=== PATIENT | male | born 1945 | race Caucasian/White ===

== ENCOUNTER 2017-01-11 11:22 | Inpatient (IN) | payer MEDICARE ==
[~2017-01-11] VITALS: Ht 180.3 cm; Wt 83.2 kg
[2017-01-11] VITALS (8 sets, daily range): BP systolic 151–207; BP diastolic 69–110; PULSE 64–82; RESP 14–22; TEMP 96.7–98.2; O2SAT 94–100
[~2017-01-11 11:22] MED LIST: ASPI81TA82 PO; ATEN-102 PO; LISI10TA PO; OMEP20TA39 PO; PARO20TA PO; VIAG100T PO; Z.0.COMMODE-3:1; Z.0.WALKERFRONT; ZOCO40TA PO
[2017-01-11] MEDS ORDERED: VIAG50TA PO (11:42)
[2017-01-11] MEDS ORDERED: OMEP20TA PO (11:42)
[2017-01-11] MEDS ORDERED: PARO10TA2 PO (11:42)
[2017-01-11] MEDS ORDERED: LISI20TA PO (11:42)
[2017-01-11] MEDS ORDERED: SIMV20TA PO (11:42)
[2017-01-11] MEDS ORDERED: ATEN25TA PO (11:42)
[2017-01-11] MEDS ORDERED: SODIUM CHLOR 0.9% 1000 ML INJ 1,000 ML IV SCH (11:51)
--- NOTE | 2017-01-11 11:57 | PD ---
HPI Chief Complaint: GI Complaint Time Seen by Provider: 11:43 Travel History International Travel<30 days: No Contact w/Intl Traveler<30days: No Traveled to known affect area: No History of Present Illness HPI 71yo M was sent from [facility] to the ED for evaluation of lower abdominal pain and nonbloody diarrhea since last night. States it is more cramping and intermittent. Denies any fever, chest pain, sob, n/v, dysuria, hematuria, testicular pain, focal weakness or numbness. Pt states he has had constipation before the diarrhea. Denies any abdominal surgery. PFSH Past Medical History Depression: Yes Cancer: No Cardiovascular Problems: No High Cholesterol: Yes Diabetes: No Diminished Hearing: No Endocrine: No Gastrointestinal Disorders: Yes (OCCAS HEARTBURN) GERD: Yes Genitourinary: No Hepatitis: No Hiatal Hernia: Yes (LARGE) Hypertension: Yes Immune Disorder: No Medical other: Yes Musculoskeletal: No Neurologic: Yes (NUMBNESS AND TINGLING IN FEET OCCAS.) Psychiatric: Yes (ANXIETY; PTSD) Reproductive: No Respiratory: No Immunizations Current: Yes Thyroid Disease: No Tetanus Vaccination: > 5 Years Influenza Vaccination: Yes Past Surgical History AICD: No Body Medical Devices: NONE Joint Replacement: Yes (LEFT KNEE) Pacemaker: No Other Surgery: No Social History Alcohol Use: Yes (3-4 GLASSES WINE DAILY) Tobacco Use: No (QUIT 40 YRS AGO) Substance Use: No Allergies-Medications (Allergen,Severity, Reaction): Coded Allergies: No Known Allergies (Unverified , 01/11/17) Reported Meds & Prescriptions Reported Meds & Active Scripts Active Reported Viagra (Sildenafil Citrate) 50 Mg Tab 50 Mg PO DAILY PRN Simvastatin 20 Mg Tab 20 Mg PO DAILY Omeprazole 20 Mg Tab 20 Mg PO BID Paroxetine (Paroxetine HCl) 10 Mg Tab 10 Mg PO DAILY Lisinopril-Hctz 20-12.5 Mg Tab 1 Tab PO DAILY Atenolol 25 Mg Tab 25 Mg PO DAILY Review of Systems Except as stated in HPI: all other systems reviewed are Neg Physical Exam Narrative GENERAL: 71yo M in mild distress. SKIN: Focused skin assessment warm/dry. HEAD: Atraumatic. Normocephalic. EYES: Pupils equal and round. No scleral icterus. No injection or drainage. ENT: No nasal bleeding or discharge. Mucous membranes pink and moist. NECK: Trachea midline. No JVD. CARDIOVASCULAR: Regular rate and rhythm. No murmur appreciated. RESPIRATORY: No accessory muscle use. Clear to auscultation. Breath sounds equal bilaterally. GASTROINTESTINAL: Abdomen softly distended. Hyperactive bowel sounds. Mild suprapubic ttp. No rebound tenderness or guarding. MUSCULOSKELETAL: No obvious deformities. No clubbing. No cyanosis. No edema. NEUROLOGICAL: Awake and alert. No obvious cranial nerve deficits. Motor grossly within normal limits. Normal speech. PSYCHIATRIC: Appropriate mood and affect; insight and judgment normal. Data Data Last Documented VS Vital Signs Date Time Temp Pulse Resp B/P (MAP) Pulse Ox O2 Delivery O2 Flow Rate FiO2 01/11/17 13:30 81 16 175/84 (114) 94 Room Air 01/11/17 11:35 97.5 Orders Orders Complete Blood Count With Diff (01/11/17 11:51) Comprehensive Metabolic Panel (01/11/17 11:51) Lipase (01/11/17 11:51) Urinalysis - C+S If Indicated (01/11/17 11:51) Ct Abd/Pel W Iv Contrast(Rout) (01/11/17 11:51) Iv Access Insert/Monitor (01/11/17 11:51) Ecg Monitoring (01/11/17 11:51) Oximetry (01/11/17 11:51) Sodium Chlor 0.9% 1000 Ml Inj (Ns 1000 M (01/11/17 11:51) Sodium Chloride 0.9% Flush (Ns Flush) (01/11/17 12:00) Ondansetron Inj (Zofran Inj) (01/11/17 12:30) Morphine Inj (Morphine Inj) (01/11/17 12:30) Iohexol 350 Inj (Omnipaque 350 Inj) (01/11/17 13:20) NPO (01/11/17 13:42) Admit Order (Ed Use Only) (01/11/17 14:13) Consult General Surgery (01/11/17 ) Consult Gastroenterology (01/11/17 ) Labs Laboratory Tests Test 01/11/17 11:55 01/11/17 13:45 White Blood Count 16.3 TH/MM3 Red Blood Count 4.57 MIL/MM3 Hemoglobin 14.5 GM/DL Hematocrit 42.4 % Mean Corpuscular Volume 92.9 FL Mean Corpuscular Hemoglobin 31.6 PG Mean Corpuscular Hemoglobin Concent 34.1 % Red Cell Distribution Width 12.7 % Platelet Count 228 TH/MM3 Mean Platelet Volume 7.6 FL Neutrophils (%) (Auto) 91.7 % Lymphocytes (%) (Auto) 3.0 % Monocytes (%) (Auto) 5.1 % Eosinophils (%) (Auto) 0.1 % Basophils (%) (Auto) 0.1 % Neutrophils # (Auto) 15.0 TH/MM3 Lymphocytes # (Auto) 0.5 TH/MM3 Monocytes # (Auto) 0.8 TH/MM3 Eosinophils # (Auto) 0.0 TH/MM3 Basophils # (Auto) 0.0 TH/MM3 CBC Comment DIFF FINAL Differential Comment Prothrombin Time 10.4 SEC Prothromb Time International Ratio 0.9 RATIO Activated Partial Thromboplast Time 29.1 SEC Blood Urea Nitrogen 21 MG/DL Creatinine 1.30 MG/DL Random Glucose 141 MG/DL Total Protein 8.2 GM/DL Albumin 4.5 GM/DL Calcium Level 9.4 MG/DL Alkaline Phosphatase 71 U/L Aspartate Amino Transf (AST/SGOT) 22 U/L Alanine Aminotransferase (ALT/SGPT) 19 U/L Total Bilirubin 1.0 MG/DL Sodium Level 128 MEQ/L Potassium Level 3.6 MEQ/L Chloride Level 94 MEQ/L Carbon Dioxide Level 24.8 MEQ/L Anion Gap 9 MEQ/L Estimat Glomerular Filtration Rate 55 ML/MIN Lipase 277 U/L Urine Collection Type VOIDED Urine Color YELLOW Urine Turbidity CLEAR Urine pH 6.0 Urine Specific [place] GREATER THAN 1.035 Urine Protein TRACE mg/dL Urine Glucose (UA) NEG mg/dL Urine Ketones TRACE mg/dL Urine Occult Blood LARGE Urine Nitrite NEG Urine Bilirubin NEG Urine Leukocyte Esterase NEG Urine RBC 4-9 /hpf Urine WBC 0-2 /hpf Urine Squamous Epithelial Cells 0-2 /hpf Microscopic Urinalysis Comment CULT NOT INDICATED MDM Medical Decision Making Medical Screen Exam Complete: Yes Emergency Medical Condition: Yes Interpretation(s) Last Impressions Abdomen/Pelvis CT 01/11/17 1151 Signed Impressions: Service Date/Time: , January 11, 2017 13:10 - CONCLUSION: 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 No evidence of gastric obstruction. Diffuse moderate distention of the colon Elier Marie MD Laboratory Tests Test 01/11/17 11:55 01/11/17 13:45 White Blood Count 16.3 TH/MM3 (4.0-11.0) Red Blood Count 4.57 MIL/MM3 (4.50-5.90) Hemoglobin 14.5 GM/DL (13.0-17.0) Hematocrit 42.4 % (39.0-51.0) Mean Corpuscular Volume 92.9 FL (80.0-100.0) Mean Corpuscular Hemoglobin 31.6 PG (27.0-34.0) Mean Corpuscular Hemoglobin Concent 34.1 % (32.0-36.0) Red Cell Distribution Width 12.7 % (11.6-17.2) Platelet Count 228 TH/MM3 (150-450) Mean Platelet Volume 7.6 FL (7.0-11.0) Neutrophils (%) (Auto) 91.7 % (16.0-70.0) Lymphocytes (%) (Auto) 3.0 % (9.0-44.0) Monocytes (%) (Auto) 5.1 % (0.0-8.0) Eosinophils (%) (Auto) 0.1 % (0.0-4.0) Basophils (%) (Auto) 0.1 % (0.0-2.0) Neutrophils # (Auto) 15.0 TH/MM3 (1.8-7.7) Lymphocytes # (Auto) 0.5 TH/MM3 (1.0-4.8) Monocytes # (Auto) 0.8 TH/MM3 (0-0.9) Eosinophils # (Auto) 0.0 TH/MM3 (0-0.4) Basophils # (Auto) 0.0 TH/MM3 (0-0.2) CBC Comment DIFF FINAL Differential Comment Blood Urea Nitrogen 21 MG/DL (7-18) Creatinine 1.30 MG/DL (0.60-1.30) Random Glucose 141 MG/DL (74-106) Total Protein 8.2 GM/DL (6.4-8.2) Albumin 4.5 GM/DL (3.4-5.0) Calcium Level 9.4 MG/DL (8.5-10.1) Alkaline Phosphatase 71 U/L (45-117) Aspartate Amino Transf (AST/SGOT) 22 U/L (15-37) Alanine Aminotransferase (ALT/SGPT) 19 U/L (12-78) Total Bilirubin 1.0 MG/DL (0.2-1.0) Sodium Level 128 MEQ/L (136-145) Potassium Level 3.6 MEQ/L (3.5-5.1) Chloride Level 94 MEQ/L (98-107) Carbon Dioxide Level 24.8 MEQ/L (21.0-32.0) Anion Gap 9 MEQ/L (5-15) Estimat Glomerular Filtration Rate 55 ML/MIN (>89) Lipase 277 U/L (73-393) Differential Diagnosis Gastroenteritis vs. colitis vs. partial obstruction Narrative Course 71yo M with lower abdominal pain and diarrhea since yesterday. On exam, pt's abdomen is distended and when I mentioned it, he said it does look new. Had nausea that was resolved with zofran. 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 No evidence of gastric obstruction. Diffuse moderate distention of the colon. Labs reviewed, leukocytosis at 16.3. Empirically given IV zosyn. Lactic acid added and normal at 1.9. Lipase normal. Hyponatremia at 128bpm. I discussed with Dr. Moctezuma who is the general surgeon loss prevention consultant for [facility]. He recommends transferring pt to [facility], admitting to Dr. Dyson and consulting GI as well. He said that he will be seen by surgery once he gets to the [facility] and that Dr. Maya should see him since he does all the hiatal hernias. I discussed with Dr. Jones who will accept pt to his service. Pt reevaluated at bedside and feels better. Pt is belching but no vomiting. Abdomen is softly distended with no tenderness at this time. Blood pressure improved after morphine. Pt denies being in pain. Also discussed with Dr. Nicolas from GI regarding pt. Critical Care Narrative Aggregate critical care time was 60 minutes. Time to perform other separately billable procedures was not included in the critical care time. My time did not include minutes spent treating any other patients simultaneously or on activities that did not directly contribute to the patient's treatment. The services I provided to this patient were to treat and/or prevent clinically significant deterioration that could result in: cardiovascular collapse or . I provided critical care services requiring my management, as noted below: Chart data review, documentation time, medication orders and management, vital sign assessments/reviewing monitor data, ordering and reviewing lab tests, ordering and interpreting/reviewing x-rays and diagnostic studies, care of the patient and discussion of the patient with the admitting physicians. Diagnosis Primary Impression: Volvulus Admitting Information Admitting Physician Requests: Admit Venus Glover DO Jan 11, 2017 11:57
[2017-01-11] MEDS ORDERED: SODIUM CHLORIDE 0.9% FLUSH 10 ML FLUSH IV FLUSH PRN (12:00)
[2017-01-11 12:04] LABS: BASOPHIL % 0.1 % (0.0-2.0); EOSINOPHIL % 0.1 % (0.0-4.0); HEMATOCRIT 42.4 % (39.0-51.0); HEMO FLAGS DIFF FINAL; LYMPHOCYTE # 0.5 TH/MM3 (1.0-4.8); MEAN CELL VOLUME 92.9 FL (80.0-100.0); MEAN CORPUSCULAR HEMOGLOBIN 31.6 PG (27.0-34.0); MEAN CORPUSCULAR HGB CONC 34.1 % (32.0-36.0); MONO % 5.1 % (0.0-8.0); NEUT % 91.7 % (16.0-70.0); PLATELET COUNT 228 TH/MM3 (150-450); RED BLOOD COUNT 4.57 MIL/MM3 (4.50-5.90); RED CELL DISTRIBUTION WIDTH 12.7 % (11.6-17.2); WHITE BLOOD COUNT 16.3 TH/MM3 (4.0-11.0)
[2017-01-11 12:13] LABS: CHLORIDE 94 MEQ/L (98-107); POTASSIUM 3.6 MEQ/L (3.5-5.1); SODIUM (NA) 128 MEQ/L (136-145)
[2017-01-11 12:16] LABS: ANION GAP 9 MEQ/L (5-15); BICARBONATE 24.8 MEQ/L (21.0-32.0)
[2017-01-11 12:17] LABS: BLOOD UREA NITROGEN 21 MG/DL (7-18)
[2017-01-11 12:19] LABS: ALT (GPT) 19 U/L (12-78); AST (GOT) 22 U/L (15-37)
[2017-01-11 12:20] LABS: GLOMERULAR FILTRATION RATE 55 ML/MIN (>89)
[2017-01-11 12:22] LABS: ALKALINE PHOSPHATASE 71 U/L (45-117)
[2017-01-11] MEDS ORDERED: MORPHINE SULFATE 4 MG/ML INJ IV PUSH ONE (12:30)
[2017-01-11] MEDS ORDERED: ONDANSETRON HCL 4 MG/2 ML VIAL IV PUSH ONE (12:30)
[2017-01-11] MEDS ORDERED: IOHEXOL 350 MG/ML 10 ML VIAL (for RAD DIAG) IVCONTRAST ONE (13:20)
--- NOTE | 2017-01-11 13:34 | RADRPT ---
EXAM DATE/TIME: 01/11/2017 13:10 [place] COMPARISON: No previous studies available for comparison. INDICATIONS : Lower abdominal pain and constipation. IV CONTRAST: 85 cc Omnipaque 350 (iohexol) IV ORAL CONTRAST: No oral contrast ingested. RADIATION DOSE: 10.34 CTDIvol (mGy) MEDICAL HISTORY : Gastroesophageal reflux disease. Hypertension. Hernia, hiatal. SURGICAL HISTORY : None. ENCOUNTER: Initial ACUITY: 3 days PAIN SCALE: 7/10 LOCATION: Bilateral lower quadrant TECHNIQUE: Volumetric scanning of the abdomen and pelvis was performed. Using automated exposure control and ad justment of the mA and/or kV according to patient size, radiation dose was kept as low as reasonably achievable to obtain optimal diagnostic quality images. DICOM format image data is available electro nically for review and comparison. FINDINGS: LOWER LUNGS: The visualized lower lungs are clear. LIVER: Homogeneous density without lesion. There is no dilation of the biliary tree. No calcified gallston es. SPLEEN: Normal size without lesion. PANCREAS: Within normal limits. KIDNEYS: Normal in size and shape. There is no mass, stone or hydronephrosis. ADRENAL GLANDS: Within normal limits. VASCULAR: Mild atherosclerotic change with patchy intimal calcifications. No evidence of aneurysm. No major ves vicky occlusion. BOWEL/MESENTERY: The stomach is intrathoracic with organoaxial volvulus of the stomach through an enormous hiatal param ia. No evidence of gastric obstruction. The colon is mildly dilated throughout with air and contents. There is moderate distal diverticular involvement without definite inflammatory change. There is for med stool in the distal rectum. Small bowel is nondilated. There is no evidence of pneumoperitoneum o r free peritoneal fluid ABDOMINAL WALL: Within normal limits. RETROPERITONEUM: There is no lymphadenopathy. BLADDER: No wall thickening or mass. REPRODUCTIVE: Within normal limits. INGUINAL: There is no lymphadenopathy or hernia. MUSCULOSKELETAL: Left total hip arthroplasty. Degenerative changes in the spine. 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 No evidence of gastric obstruction. Diffuse moderate distention of the colon Elier Marie MD on January 11, 2017 at 13:24 Board Certified Radiologist. This report was verified electronically.
[2017-01-11 14:06] LABS: BLOOD, URINE LARGE (NEG); GLUCOSE,URINE NEG (NEG); KETONE, URINE TRACE mg/dL (NEG); NITRITE,URINE NEG (NEG)
[2017-01-11] MEDS ORDERED: PIPERACIL-TAZO 3.375 GM PREMIX 50 ML IV ONE (14:30)
[2017-01-11 14:33] LABS: METHOD OF COLLECTION VOIDED; SQUAMOUS EPITHELIAL CELL URINE 0-2 /hpf (0-5); URINE COLOR YELLOW (YELLW/STRAW); WBC, URINE 0-2 /hpf (0-5)
[2017-01-11 14:34] LABS: COMMENT (UR) CULT NOT INDICATED; CULTURE IF INDICATED CULT NOT INDICATED
[2017-01-11 14:54] LABS: APTT (PATIENT) 29.1 SEC (24.3-30.1); INTERNATIONAL NORMALIZED RATIO 0.9 RATIO; PROTHROMBIN TIME - PATIENT 10.4 SEC (9.8-11.6)
[2017-01-11] MEDS ORDERED: MORPHINE SULFATE 4 MG/ML INJ IV PUSH PRN (16:15)
[2017-01-11] MEDS ORDERED: ENALAPRILAT 1.25 MG/ML VIAL IV PUSH PRN (16:15)
[2017-01-11] MEDS ORDERED: ONDANSETRON HCL 4 MG/2 ML VIAL IV PRN (16:30)
--- NOTE | 2017-01-11 16:43 | HHI.HP ---
HPI Service [facility] Hospitalists Primary Care Physician Amish Fisher MD, PhD Admission Diagnosis Volvulus of stomach Chief Complaint: Abdominal pain Travel History International Travel<30 Days: No Contact w/Intl Traveler <30 Da: No Traveled to Known Affected Are: No History of Present Illness Mr. Conrad is a pleasant 71 y/o WM with HTN, hyperlipidemia, CKD stage 3, peripheral neuropathy and PTSD. Pt presented to the ED at [facility] with complaints lower abdominal pain and diarrhea. Pt reports that he had recently been feeling more constipated and having difficulty with passing stool. He has also complained of increased abdominal distension over the last few days as well. He denies taking any laxative or stool softeners to help with this. Then yesterday he started having diarrhea and lower abdominal cramping and states that he was having so much diarrhea that he was unable to get up off the commode. Denies any nausea/vomiting. Denies any melena or BRBPR. He also reported issues with early satiety for quite some time. 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 Pt denies any recent antibiotic use, recent travel or changes in his medications. Labs at admission noted an elevated WBC count of 16.3 but pt has been afebrile. His labs indicate some degree of dehydration and pt states that he has not been eating or drinking as well with the increased constipation. Pt denies any chest pain, SOB, palpitations, dizziness, weakness, fevers or chills. Currently pt appears to be more comfortable. He states that his abd pain has lessened with the pain meds that were given in the ED. Review of Systems Constitutional: DENIES: Fever, Chills Eyes: DENIES: Vision loss Ears, nose, mouth, throat: DENIES: Hearing loss Respiratory: DENIES: Cough, Shortness of breath Cardiovascular: DENIES: Chest pain Gastrointestinal: COMPLAINS OF: Abdominal pain, Constipation, Diarrhea, Nausea , DENIES: Vomiting Genitourinary: DENIES: Hematuria, Dysuria Musculoskeletal: DENIES: Back pain Integumentary: DENIES: Rash Neurologic: DENIES: Headache Psychiatric: DENIES: Confusion Past Family Social History Past Medical History HTN hyperlipidemia GERD Past Surgical History Right hip replacement Reported Medications Viagra (Sildenafil Citrate) 50 Mg Tab 50 Mg PO DAILY PRN Simvastatin 20 Mg Tab 20 Mg PO DAILY Omeprazole 20 Mg Tab 20 Mg PO BID Paroxetine (Paroxetine HCl) 10 Mg Tab 10 Mg PO DAILY Lisinopril-Hctz 20-12.5 Mg Tab 1 Tab PO DAILY Atenolol 25 Mg Tab 25 Mg PO DAILY Allergies: Coded Allergies: No Known Allergies (Unverified , 01/11/17) Family History Noncontributory Social History Hx of tobacco use, smoked for about 10-15years, quit over 40 years ago Pt drinks a couple glasses of wine at night 2-3 times per week Denies any illicit drug use Physical Exam Vital Signs Vital Signs Date Time Temp Pulse Resp B/P (MAP) Pulse Ox O2 Delivery O2 Flow Rate FiO2 01/11/17 15:15 01/11/17 15:03 98.2 67 14 163/84 (110) 94 Room Air 01/11/17 13:30 81 16 175/84 (114) 94 Room Air 01/11/17 12:26 82 14 195/101 (132) 94 Room Air 01/11/17 11:53 100 Room Air 01/11/17 11:40 (142) 01/11/17 11:35 97.5 76 16 207/110 (142) 100 Room Air Physical Exam GENERAL: This is a well-nourished, well-developed patient, in no apparent distress. HEENT: Atraumatic. Normocephalic. No temporal or scalp tenderness. No scleral icterus. Airway patent. NECK: Trachea midline, supple, nontender. CARDIO: Regular. RESP: CTA bilaterally. No wheezes, rales, or rhonchi. ABD: +BS, soft, mildly distended, nontender EXT: Extremities without clubbing, cyanosis, or edema. NEURO: Awake and alert. Motor and sensory grossly within normal limits. Normal speech. Laboratory Laboratory Tests Test 01/11/17 11:55 01/11/17 13:45 01/11/17 14:20 White Blood Count 16.3 Red Blood Count 4.57 Hemoglobin 14.5 Hematocrit 42.4 Mean Corpuscular Volume 92.9 Mean Corpuscular Hemoglobin 31.6 Mean Corpuscular Hemoglobin Concent 34.1 Red Cell Distribution Width 12.7 Platelet Count 228 Mean Platelet Volume 7.6 Neutrophils (%) (Auto) 91.7 Lymphocytes (%) (Auto) 3.0 Monocytes (%) (Auto) 5.1 Eosinophils (%) (Auto) 0.1 Basophils (%) (Auto) 0.1 Neutrophils # (Auto) 15.0 Lymphocytes # (Auto) 0.5 Monocytes # (Auto) 0.8 Eosinophils # (Auto) 0.0 Basophils # (Auto) 0.0 CBC Comment DIFF FINAL Differential Comment Prothrombin Time 10.4 Prothromb Time International Ratio 0.9 Activated Partial Thromboplast Time 29.1 Blood Urea Nitrogen 21 Creatinine 1.30 Random Glucose 141 Total Protein 8.2 Albumin 4.5 Calcium Level 9.4 Alkaline Phosphatase 71 Aspartate Amino Transf (AST/SGOT) 22 Alanine Aminotransferase (ALT/SGPT) 19 Total Bilirubin 1.0 Sodium Level 128 Potassium Level 3.6 Chloride Level 94 Carbon Dioxide Level 24.8 Anion Gap 9 Estimat Glomerular Filtration Rate 55 Lipase 277 Urine Collection Type VOIDED Urine Color YELLOW Urine Turbidity CLEAR Urine pH 6.0 Urine Specific [place] GREATER THAN 1.035 Urine Protein TRACE Urine Glucose (UA) NEG Urine Ketones TRACE Urine Occult Blood LARGE Urine Nitrite NEG Urine Bilirubin NEG Urine Leukocyte Esterase NEG Urine RBC 4-9 Urine WBC 0-2 Urine Squamous Epithelial Cells 0-2 Microscopic Urinalysis Comment CULT NOT INDICATED Lactic Acid Level 1.9 Date/Time Source Procedure Growth Status 01/11/17 14:25 Blood Peripheral Aerobic Blood Culture Pending Received 01/11/17 14:25 Blood Peripheral Anaerobic Blood Culture Pending Received Result Diagram: 01/11/17 1155 01/11/17 1155 Imaging Last Impressions Abdomen/Pelvis CT 01/11/17 1151 Signed Impressions: Service Date/Time: January 13:10 - CONCLUSION: 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 No evidence of gastric obstruction. Diffuse moderate distention of the colon Elier Marie MD Septic Shock Reassessment Heart: Regular rate and rhythm Lungs: Clear Skin: Warm Caprini VTE Risk Assessment Caprini VTE Risk Assessment: Mod/High Risk (score >= 2) Caprini Risk Assessment Model Point Value = 1 Point Value = 2 Point Value = 3 Point Value = 5 Age 41-60 Minor surgery BMI > 25 kg/m2 Swollen legs Varicose veins or History of unexplained or recurrent spontaneous Oral contraceptives or hormone replacement Sepsis (< 1 month) Serious lung disease, including pneumonia (< 1 month) Abnormal pulmonary function Acute myocardial infarction Congestive heart failure (< 1 month) History of inflammatory bowel disease Medical patient at bed rest Age 61-74 Arthroscopic surgery Major open surgery (> 45 min) Laparoscopic surgery (> 45 min) Malignancy Confined to bed (> 72 hours) Immobilizing plaster cast Central venous access Age >= 75 History of VTE Family history of VTE Factor V Leiden Prothrombin [id number] Lupus anticoagulant Anticardiolipin antibodies Elevated serum homocysteine Heparin-induced thrombocytopenia Other congenital or acquired thrombophilia Stroke (< 1 month) Elective arthroplasty Hip, pelvis, or leg fracture Acute spinal cord injury (< 1 month) Prophylaxis Regimen Total Risk Factor Score Risk Level Prophylaxis Regimen 0-1 Low Early ambulation 2 Moderate Order ONE of the following: *Sequential Compression Device (SCD) *Heparin 5000 units SQ BID 3-4 Higher Order ONE of the following medications: *Heparin 5000 units SQ TID *Enoxaparin/Lovenox 40 mg SQ daily (WT < 150 kg, CrCl > 30 mL/min) *Enoxaparin/Lovenox 30 mg SQ daily (WT < 150 kg, CrCl > 10-29 mL/min) *Enoxaparin/Lovenox 30 mg SQ BID (WT < 150 kg, CrCl > 30 mL/min) AND/OR *Sequential Compression Device (SCD) 5 or more Highest Order ONE of the following medications: *Heparin 5000 units SQ TID (Preferred with Epidurals) *Enoxaparin/Lovenox 40 mg SQ daily (WT < 150 kg, CrCl > 30 mL/min) *Enoxaparin/Lovenox 30 mg SQ daily (WT < 150 kg, CrCl > 10-29 mL/min) *Enoxaparin/Lovenox 30 mg SQ BID (WT < 150 kg, CrCl > 30 mL/min) AND *Sequential Compression Device (SCD) Assessment and Plan Problem List: (1) Volvulus ICD Codes: K56.2 - Volvulus Status: Acute Plan: - Pt is a 71 y/o WM with HTN, hyperlipidemia, CKD stage 3, peripheral neuropathy and PTSD. - He presented to the ED at [facility] with complaints lower abdominal pain and diarrhea. - Pt had recently been feeling more constipated and having difficulty with passing stool as well as increased abdominal distension over the last few days. Then yesterday he started having diarrhea and lower abdominal cramping and states that he was having so much diarrhea that he was unable to get up off the commode for most of the day. 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 - Labs at admission noted an elevated WBC count of 16.3 but pt has been afebrile. - His labs indicate some degree of dehydration - General Surgery, Dr. Moctezuma, was contacted in the ED and pt was recommended to be transferred to [facility] for surgical evaluation and GI evaluation. - Pts pain is currently controlled - Keep pt NPO - General Surgery has requested UGI series which has been ordered - Check stool for C. diff and culture - IVF with NS - Pain control PRN - Antiemetics PRN - IV Vasotec PRN as oral BP medications are on hold for now. - GI consultation was placed from the ED - Supportive care - Further recommendations as the case develops - DVT prophylaxis with SCDs for now. (2) Hiatal hernia ICD Codes: K44.9 - Diaphragmatic hernia without obstruction or gangrene Plan: - See above. (3) Hyperlipidemia ICD Codes: E78.5 - Hyperlipidemia, unspecified Status: Chronic Plan: - Oral home meds on hold for now - Resume when able to tolerate po intake (4) Hypertension ICD Codes: I10 - Essential (primary) hypertension Status: Chronic Plan: - Vasotec PRN - Oral meds on hold due to NPO status Physician Certification 2 Midnight Certification Type: Admission for Inpatient Services Order for Inpatient Services The services are ordered in accordance with Medicare regulations or non- Medicare payer requirements, as applicable. In the case of services not specified as inpatient-only, they are appropriately provided as inpatient services in accordance with the 2-midnight benchmark. Estimated LOS (days): 3 3 days is the estimated time the patient will need to remain in the hospital, assuming treatment plan goals are met and no additional complications. Post-Hospital Plan: Not yet determined Quita Fitch Jan 11, 2017 16:43
[2017-01-11] MEDS: SODIUM CHLOR 0.9% 1000 ML INJ 1,000 ML IV SCH (17:19)
[2017-01-11] MEDS: PANTOPRAZOLE SODIUM 40 MG VIAL IV PUSH SCH (17:20)
[2017-01-11 22:42] LABS: C. DIFF EPI 027 PRESUMPTIVE NEGATIVE (NEGATIVE)
[2017-01-12] VITALS (8 sets, daily range): BP systolic 131–174; BP diastolic 62–77; PULSE 58–66; RESP 16–24; TEMP 96.7–98.2; O2SAT 95–98
[2017-01-12] MEDS: metroNIDAZOLE 500 MG INJ 100 ML IV SCH ×2 (00:20→09:17)
[2017-01-12] MEDS: SODIUM CHLOR 0.9% 1000 ML INJ 1,000 ML IV SCH ×4 (00:20→22:30)
[2017-01-12 05:33] LABS: AUTOMATED NEUTROPHIL # 6.1 TH/MM3 (1.8-7.7); BASOPHIL % 0.2 % (0.0-2.0); EOSINOPHIL # 0.1 TH/MM3 (0-0.4); EOSINOPHIL % 1.7 % (0.0-4.0); HEMATOCRIT 33.3 % (39.0-51.0); HEMO FLAGS DIFF FINAL; LYMPH % 11.4 % (9.0-44.0); LYMPHOCYTE # 0.9 TH/MM3 (1.0-4.8); MEAN CELL VOLUME 93.5 FL (80.0-100.0); MEAN CORPUSCULAR HEMOGLOBIN 32.4 PG (27.0-34.0); MEAN CORPUSCULAR HGB CONC 34.7 % (32.0-36.0); NEUT % 76.7 % (16.0-70.0); PLATELET COUNT 168 TH/MM3 (150-450); RED BLOOD COUNT 3.56 MIL/MM3 (4.50-5.90); RED CELL DISTRIBUTION WIDTH 13.6 % (11.6-17.2)
[2017-01-12 05:52] LABS: BICARBONATE 22.6 MEQ/L (21.0-32.0); MAGNESIUM 1.9 MG/DL (1.5-2.5); POTASSIUM 3.5 MEQ/L (3.5-5.1)
--- NOTE | 2017-01-12 07:29 | PD.CONS ---
HPI History of Present Illness This is a 71 year old male who presented to the emergency room for evaluation of abdominal pain and diarrhea. He reports that he does have chronic constipation, but this is usually controlled with diet (he usually eats bran cereal for breakfast). He states that he has not been having his bran cereal for about a week and became extremely constipated x 3 days. He did not take anything, but states he was straining to move his bowel for about a day, but not passing any stool, just some liquid. He then became extremely bloated/ distended and started having frequent belching with lower abdominal cramping. He denies any nausea/vomiting with this. 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 No evidence of gastric obstruction. Diffuse moderate distention of the colon. He was then transferred to the [facility] for a surgical evaluation. The patient reports that he was seen by Dr. Maya and that an upper GI series has been ordered. He states that he finally did pass some hard stool and then passed a large amount of diarrhea and flatus. His abdominal distention improved with this, as did his abdominal cramping. He was also noted to have C difficile (+), 027 negative. He denies any nausea, vomiting. He has never had C difficile before. He last had antibiotics about 3 months ago prior to dental work. He does have a long history of a hiatal hernia and heartburn/reflux, but states he controls this with omeprazole and antireflux measures. Clinically he is feeling much better. He denies any abnormal weight loss and has never had an egd/colonoscopy. 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 No evidence of gastric obstruction. Diffuse moderate distention of the colon Elier Marie MD Family History Noncontributory Social History Quit smoking over 40 years ago, smoked for about 10-15years prior to that Pt drinks a couple glasses of wine at night 2-3 times per week Denies any illicit drug use (Madisyn Merlos) Review of Systems Constitutional: COMPLAINS OF: Fatigue, DENIES: Fever, Weight loss, Chills Respiratory: DENIES: Cough Cardiovascular: DENIES: Chest pain Gastrointestinal: COMPLAINS OF: Abdominal pain, Constipation, Diarrhea, Swelling of Abdomen, Heartburn, DENIES: Black stools, Bloody stools, Nausea, Vomiting, Hematemesis Integumentary: DENIES: Abnormal pigmentation Hematologic/lymphatic: DENIES: Bruising Neurologic: DENIES: Headache Psychiatric: DENIES: Confusion (Madisyn Merlos) GI Exam Vitals I&O Vital Signs Date Time Temp Pulse Resp B/P (MAP) Pulse Ox O2 Delivery O2 Flow Rate FiO2 01/12/17 04:00 97.3 61 20 131/62 (85) 95 01/12/17 00:00 96.7 65 20 141/67 (91) 98 01/11/17 20:00 96.8 66 22 151/69 (96) 96 01/11/17 19:56 64 01/11/17 16:00 96.7 74 17 188/85 (119) 96 01/11/17 15:15 01/11/17 15:03 98.2 67 14 163/84 (110) 94 Room Air 01/11/17 13:30 81 16 175/84 (114) 94 Room Air 01/11/17 12:26 82 14 195/101 (132) 94 Room Air 01/11/17 11:53 100 Room Air 01/11/17 11:40 (142) 01/11/17 11:35 97.5 76 16 207/110 (142) 100 Room Air I/O 01/11/17 01/11/17 01/11/17 01/12/17 01/12/17 01/12/17 07:00 15:00 23:00 07:00 15:00 23:00 Intake Total 1000 ml 113 ml 0 ml Output Total 100 ml Balance 900 ml 113 ml 0 ml Intake Oral 0 ml 0 ml IV Total 1000 ml 113 ml Output Urine Total 100 ml # Voids 1 1 3 # Bowel Movements 2 2 Imaging Last Impressions Abdomen/Pelvis CT 01/11/17 1151 Signed Impressions: Service Date/Time: January 13:10 - CONCLUSION: 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 No evidence of gastric obstruction. Diffuse moderate distention of the colon Elier Marie MD Laboratory Test 01/11/17 11:55 01/11/17 13:45 01/11/17 14:20 01/11/17 19:35 White Blood Count 16.3 TH/MM3 Red Blood Count 4.57 MIL/MM3 Hemoglobin 14.5 GM/DL Hematocrit 42.4 % Mean Corpuscular Volume 92.9 FL Mean Corpuscular Hemoglobin 31.6 PG Mean Corpuscular Hemoglobin Concent 34.1 % Red Cell Distribution Width 12.7 % Platelet Count 228 TH/MM3 Mean Platelet Volume 7.6 FL Neutrophils (%) (Auto) 91.7 % Lymphocytes (%) (Auto) 3.0 % Monocytes (%) (Auto) 5.1 % Eosinophils (%) (Auto) 0.1 % Basophils (%) (Auto) 0.1 % Neutrophils # (Auto) 15.0 TH/MM3 Lymphocytes # (Auto) 0.5 TH/MM3 Monocytes # (Auto) 0.8 TH/MM3 Eosinophils # (Auto) 0.0 TH/MM3 Basophils # (Auto) 0.0 TH/MM3 CBC Comment DIFF FINAL Differential Comment Prothrombin Time 10.4 SEC Prothromb Time International Ratio 0.9 RATIO Activated Partial Thromboplast Time 29.1 SEC Blood Urea Nitrogen 21 MG/DL Creatinine 1.30 MG/DL Random Glucose 141 MG/DL Total Protein 8.2 GM/DL Albumin 4.5 GM/DL Calcium Level 9.4 MG/DL Alkaline Phosphatase 71 U/L Aspartate Amino Transf (AST/SGOT) 22 U/L Alanine Aminotransferase (ALT/SGPT) 19 U/L Total Bilirubin 1.0 MG/DL Sodium Level 128 MEQ/L Potassium Level 3.6 MEQ/L Chloride Level 94 MEQ/L Carbon Dioxide Level 24.8 MEQ/L Anion Gap 9 MEQ/L Estimat Glomerular Filtration Rate 55 ML/MIN Lipase 277 U/L Urine Collection Type VOIDED Urine Color YELLOW Urine Turbidity CLEAR Urine pH 6.0 Urine Specific [place] GREATER THAN 1.035 Urine Protein TRACE mg/dL Urine Glucose (UA) NEG mg/dL Urine Ketones TRACE mg/dL Urine Occult Blood LARGE Urine Nitrite NEG Urine Bilirubin NEG Urine Leukocyte Esterase NEG Urine RBC 4-9 /hpf Urine WBC 0-2 /hpf Urine Squamous Epithelial Cells 0-2 /hpf Microscopic Urinalysis Comment CULT NOT INDICATED Lactic Acid Level 1.9 mmol/L Stool C. difficile Toxin (PCR) POSITIVE Stl C. difficile Toxin Epiderm 027 PRESUMPTIVE NEGATIVE Test 01/12/17 04:28 White Blood Count 8.0 TH/MM3 Red Blood Count 3.56 MIL/MM3 Hemoglobin 11.5 GM/DL Hematocrit 33.3 % Mean Corpuscular Volume 93.5 FL Mean Corpuscular Hemoglobin 32.4 PG Mean Corpuscular Hemoglobin Concent 34.7 % Red Cell Distribution Width 13.6 % Platelet Count 168 TH/MM3 Mean Platelet Volume 7.5 FL Neutrophils (%) (Auto) 76.7 % Lymphocytes (%) (Auto) 11.4 % Monocytes (%) (Auto) 10.0 % Eosinophils (%) (Auto) 1.7 % Basophils (%) (Auto) 0.2 % Neutrophils # (Auto) 6.1 TH/MM3 Lymphocytes # (Auto) 0.9 TH/MM3 Monocytes # (Auto) 0.8 TH/MM3 Eosinophils # (Auto) 0.1 TH/MM3 Basophils # (Auto) 0.0 TH/MM3 CBC Comment DIFF FINAL Differential Comment Blood Urea Nitrogen 18 MG/DL Creatinine 1.14 MG/DL Random Glucose 90 MG/DL Calcium Level 8.5 MG/DL Magnesium Level 1.9 MG/DL Sodium Level 135 MEQ/L Potassium Level 3.5 MEQ/L Chloride Level 103 MEQ/L Carbon Dioxide Level 22.6 MEQ/L Anion Gap 9 MEQ/L Estimat Glomerular Filtration Rate 64 ML/MIN Date/Time Source Procedure Growth Status 01/11/17 14:25 Blood Peripheral Aerobic Blood Culture Pending Received 01/11/17 14:25 Blood Peripheral Anaerobic Blood Culture Pending Received 01/11/17 19:35 Stool Stool Pending Received Physical Examination HEENT: Normocephalic; atraumatic; no jaundice. CHEST: CTA CARDIAC: RRR. ABDOMEN: Soft, mildly distended, nontender; no hepatosplenomegaly; bowel sounds are present in all four quadrants. EXTREMITIES: No clubbing, cyanosis, or edema. SKIN: Normal; no rash; no jaundice. [employer]: No focal deficits; alert and oriented times three. (Madisyn Merlos) Assessment and Plan Plan ASSESSMENT: - C Difficile Diarrhea, Epid 027 neg. 1st episode. Last abx 3 months ago prior to dental work. Flagyl. - HH, Abnormal imaging on CT with intrathoracic with organaxial volvulus of the stomach. 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 No evidence of gastric obstruction. Diffuse moderate distention of the colon. He was then transferred to the [facility] for a surgical evaluation. Upper GI series pending. GS following. PPI - Distention/Colonic distention/Constipation. Usually controlled with diet, but has not been taking Bran flakes x 1 week and became severe constipated x 3 days. S/P BM and then passed large amount of abdominal. Clinically, much improved. - Abdominal pain, abdominal cramping. Much improved. - Anemia. 11.5/33.3. No hx of EGD/Colonoscopy. PLAN: - NPO - Upper GI series - Protonix 40mg IV daily - Flagyl 500mg IV q8h - CBC, BMP in am - GS following - Supportive care - Further recommendations to follow based on results of above - Pt seen and examined by Dr. Hou and myself and this note is written on his behalf (Madisyn Merlos) Physician Comments seen, examined agree with above ugi series noted await input from surgery will need an EGD-would like to have it op unless absolutely necessary here discussed about screening colonoscopy same time -not interested (Melody Hou MD) Madisyn Merlos Jan 12, 2017 07:29 Melody Hou MD Jan 12, 2017 15:29
[2017-01-12] MEDS: PANTOPRAZOLE SODIUM 40 MG VIAL IV PUSH SCH (09:17)
[2017-01-12] MEDS ORDERED: DIATRIZOATE MEGLUM/DIATRIZOATE SOD 120 ML BTL (for RAD DIAG) PO ONE (09:55)
--- NOTE | 2017-01-12 10:31 | HHI.PR ---
Subjective Remarks Pt down for UGI series, will re-evaluate when he returns Objective Vitals Vital Signs Date Time Temp Pulse Resp B/P (MAP) Pulse Ox O2 Delivery O2 Flow Rate FiO2 01/12/17 08:00 97.4 58 16 146/67 (93) 96 01/12/17 04:00 97.3 61 20 131/62 (85) 95 01/12/17 00:00 96.7 65 20 141/67 (91) 98 01/11/17 20:00 96.8 66 22 151/69 (96) 96 01/11/17 19:56 64 01/11/17 16:00 96.7 74 17 188/85 (119) 96 01/11/17 15:15 01/11/17 15:03 98.2 67 14 163/84 (110) 94 Room Air 01/11/17 13:30 81 16 175/84 (114) 94 Room Air 01/11/17 12:26 82 14 195/101 (132) 94 Room Air 01/11/17 11:53 100 Room Air 01/11/17 11:40 (142) 01/11/17 11:35 97.5 76 16 207/110 (142) 100 Room Air Result Diagram: 01/12/17 0428 01/12/17 0428 Other Results Laboratory Tests Test 01/11/17 11:55 01/11/17 13:45 01/11/17 14:20 01/11/17 19:35 White Blood Count 16.3 TH/MM3 Red Blood Count 4.57 MIL/MM3 Hemoglobin 14.5 GM/DL Hematocrit 42.4 % Mean Corpuscular Volume 92.9 FL Mean Corpuscular Hemoglobin 31.6 PG Mean Corpuscular Hemoglobin Concent 34.1 % Red Cell Distribution Width 12.7 % Platelet Count 228 TH/MM3 Mean Platelet Volume 7.6 FL Neutrophils (%) (Auto) 91.7 % Lymphocytes (%) (Auto) 3.0 % Monocytes (%) (Auto) 5.1 % Eosinophils (%) (Auto) 0.1 % Basophils (%) (Auto) 0.1 % Neutrophils # (Auto) 15.0 TH/MM3 Lymphocytes # (Auto) 0.5 TH/MM3 Monocytes # (Auto) 0.8 TH/MM3 Eosinophils # (Auto) 0.0 TH/MM3 Basophils # (Auto) 0.0 TH/MM3 CBC Comment DIFF FINAL Differential Comment Prothrombin Time 10.4 SEC Prothromb Time International Ratio 0.9 RATIO Activated Partial Thromboplast Time 29.1 SEC Blood Urea Nitrogen 21 MG/DL Creatinine 1.30 MG/DL Random Glucose 141 MG/DL Total Protein 8.2 GM/DL Albumin 4.5 GM/DL Calcium Level 9.4 MG/DL Alkaline Phosphatase 71 U/L Aspartate Amino Transf (AST/SGOT) 22 U/L Alanine Aminotransferase (ALT/SGPT) 19 U/L Total Bilirubin 1.0 MG/DL Sodium Level 128 MEQ/L Potassium Level 3.6 MEQ/L Chloride Level 94 MEQ/L Carbon Dioxide Level 24.8 MEQ/L Anion Gap 9 MEQ/L Estimat Glomerular Filtration Rate 55 ML/MIN Lipase 277 U/L Urine Collection Type VOIDED Urine Color YELLOW Urine Turbidity CLEAR Urine pH 6.0 Urine Specific [place] GREATER THAN 1.035 Urine Protein TRACE mg/dL Urine Glucose (UA) NEG mg/dL Urine Ketones TRACE mg/dL Urine Occult Blood LARGE Urine Nitrite NEG Urine Bilirubin NEG Urine Leukocyte Esterase NEG Urine RBC 4-9 /hpf Urine WBC 0-2 /hpf Urine Squamous Epithelial Cells 0-2 /hpf Microscopic Urinalysis Comment CULT NOT INDICATED Lactic Acid Level 1.9 mmol/L Stool C. difficile Toxin (PCR) POSITIVE Stl C. difficile Toxin Epiderm 027 PRESUMPTIVE NEGATIVE Test 01/12/17 04:28 White Blood Count 8.0 TH/MM3 Red Blood Count 3.56 MIL/MM3 Hemoglobin 11.5 GM/DL Hematocrit 33.3 % Mean Corpuscular Volume 93.5 FL Mean Corpuscular Hemoglobin 32.4 PG Mean Corpuscular Hemoglobin Concent 34.7 % Red Cell Distribution Width 13.6 % Platelet Count 168 TH/MM3 Mean Platelet Volume 7.5 FL Neutrophils (%) (Auto) 76.7 % Lymphocytes (%) (Auto) 11.4 % Monocytes (%) (Auto) 10.0 % Eosinophils (%) (Auto) 1.7 % Basophils (%) (Auto) 0.2 % Neutrophils # (Auto) 6.1 TH/MM3 Lymphocytes # (Auto) 0.9 TH/MM3 Monocytes # (Auto) 0.8 TH/MM3 Eosinophils # (Auto) 0.1 TH/MM3 Basophils # (Auto) 0.0 TH/MM3 CBC Comment DIFF FINAL Differential Comment Blood Urea Nitrogen 18 MG/DL Creatinine 1.14 MG/DL Random Glucose 90 MG/DL Calcium Level 8.5 MG/DL Magnesium Level 1.9 MG/DL Sodium Level 135 MEQ/L Potassium Level 3.5 MEQ/L Chloride Level 103 MEQ/L Carbon Dioxide Level 22.6 MEQ/L Anion Gap 9 MEQ/L Estimat Glomerular Filtration Rate 64 ML/MIN Imaging Last Impressions Abdomen/Pelvis CT 01/11/17 1151 Signed Impressions: Service Date/Time: January 13:10 - CONCLUSION: 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 No evidence of gastric obstruction. Diffuse moderate distention of the colon Elier Marie MD A/P Problem List: (1) Volvulus ICD Codes: K56.2 - Volvulus Status: Acute Plan: - Pt is a 71 y/o WM with HTN, hyperlipidemia, CKD stage 3, peripheral neuropathy and PTSD. - He presented to the ED at [facility] with complaints lower abdominal pain and diarrhea. - Pt had recently been feeling more constipated and having difficulty with passing stool as well as increased abdominal distension over the last few days. Then yesterday he started having diarrhea and lower abdominal cramping and states that he was having so much diarrhea that he was unable to get up off the commode for most of the day. 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 - Labs at admission noted an elevated WBC count of 16.3 but pt has been afebrile. - His labs indicate some degree of dehydration - General Surgery, Dr. Moctezuma, was contacted in the ED and pt was recommended to be transferred to [facility] for surgical evaluation and GI evaluation. - Pts pain is currently controlled - General Surgery consulted. - UGI series is pending. - Stool were positive for C. diff, pt was started on Flagyl IV last night and will be converted to po when able to take oral meds - IVF with NS - Pain control PRN - Antiemetics PRN - IV Vasotec PRN as oral BP medications are on hold for now. - Appreciate GI consultation - Supportive care - DVT prophylaxis with SCDs for now. (2) C. difficile diarrhea ICD Codes: A04.72 - Enterocolitis due to Clostridium difficile, not specified as recurrent Status: Acute Plan: - See above. (3) Hiatal hernia ICD Codes: K44.9 - Diaphragmatic hernia without obstruction or gangrene Plan: - See above. (4) Hyperlipidemia ICD Codes: E78.5 - Hyperlipidemia, unspecified Status: Chronic Plan: - Oral home meds on hold for now - Resume when able to tolerate po intake (5) Hypertension ICD Codes: I10 - Essential (primary) hypertension Status: Chronic Plan: - Vasotec PRN - Oral meds on hold due to NPO status Assessment and Plan Patient examined. Assessment and plan formulated with Quita Fitch PA-C. I agree with the above. c diff with distended colon. improved symptomatically and wbc down. ugi with sbft no obstruction stomach is pulled up into chest....no obstruction on imaging and clinically doing well and no pain. advance diet. flagyl. d/c over weekend if doing ok. Quita Fitch Jan 12, 2017 10:31 Wai Jones MD Jan 12, 2017 16:08
--- NOTE | 2017-01-12 10:36 | RADRPT ---
EXAM DATE/TIME: 01/12/2017 09:14 [place] COMPARISON: CT ABDOMEN & PELVIS W CONTRAST, January 11, 2017, 13:10. INDICATIONS : Lower abdominal discomfort, constipation. Evaluate volvulus of the stomach FLUORO TIME: 2.9 minutes IMAGE COUNT: 22 CONTRAST: 1. MD [place] MEDICAL HISTORY : Gastroesophageal reflux disease. Hiatal hernia. SURGICAL HISTORY : left hip replaced ENCOUNTER: Subsequent ACUITY: 2 days PAIN SCORE: 1/10 LOCATION: Bilateral abdomen FINDINGS: Preliminary film is unremarkable. Esophagus is mildly distended with mild distal tertiary contractions. No evidence for significant annika nosis, ulceration, or stricture. There is a large hiatal hernia containing nearly the entire stomach. Contrast flows freely into the stomach and the stomach is not distended. There is organoaxial rotati on of the stomach. There is delayed passage of contrast through the stomach although contrast does fl ow freely to the duodenum without a focal point of obstruction. The duodenal bulb and duodenal sweep appear normal. CONCLUSION: 1. Large hiatal hernia containing nearly the entire stomach with associated organoaxial rotation of t he stomach. There is delayed passage of contrast through the stomach although no focal gastric obstru ction is demonstrated with contrast extending to the duodenum. Vishal Morin MD on January 12, 2017 at 10:27 Board Certified Radiologist. This report was verified electronically.
[2017-01-13] VITALS: BP 169/78; PULSE 57; RESP 22; TEMP 97.3; O2SAT 97
[2017-01-13] MEDS: metroNIDAZOLE 500 MG TAB PO SCH ×3 (00:09→14:45)
[2017-01-13] MEDS: LISINOPRIL 10 MG TAB PO SCH ×2 (00:09→09:07)
[2017-01-13 04:00] VITALS: BP 159/73; PULSE 66; RESP 22; TEMP 97.2; O2SAT 97
[2017-01-13 08:00] VITALS: BP 161/74; PULSE 69; RESP 17; TEMP 97; O2SAT 95
[2017-01-13] MEDS: SODIUM CHLOR 0.9% 1000 ML INJ 1,000 ML IV SCH (08:30)
[2017-01-13] MEDS ORDERED: PANTOPRAZOLE SOD 40 MG DELAYED RELEASE TAB PO SCH (09:00)
--- NOTE | 2017-01-13 09:20 | HHI.PR ---
Subjective Remarks Pt tolerated full liquids and wants to try more solid foods today He states that he had 4 loose BMs yesterday Denies any abd pain or distension today +Flatus No nausea/vomiting, afebrile. Objective Vitals Vital Signs Date Time Temp Pulse Resp B/P (MAP) Pulse Ox O2 Delivery O2 Flow Rate FiO2 01/13/17 08:00 97.0 69 17 161/74 (103) 95 01/13/17 04:00 97.2 66 22 159/73 (101) 97 01/13/17 00:00 97.3 57 22 169/78 (108) 97 01/12/17 23:00 63 01/12/17 20:00 97.4 63 24 171/77 (108) 98 01/12/17 16:00 96.9 66 18 174/76 (108) 97 01/12/17 12:00 98.2 60 17 141/67 (91) 95 01/12/17 10:00 59 Result Diagram: 01/12/17 0428 01/12/17 0428 Other Results Laboratory Tests Test 01/11/17 11:55 01/11/17 13:45 01/11/17 14:20 01/11/17 19:35 White Blood Count 16.3 TH/MM3 Red Blood Count 4.57 MIL/MM3 Hemoglobin 14.5 GM/DL Hematocrit 42.4 % Mean Corpuscular Volume 92.9 FL Mean Corpuscular Hemoglobin 31.6 PG Mean Corpuscular Hemoglobin Concent 34.1 % Red Cell Distribution Width 12.7 % Platelet Count 228 TH/MM3 Mean Platelet Volume 7.6 FL Neutrophils (%) (Auto) 91.7 % Lymphocytes (%) (Auto) 3.0 % Monocytes (%) (Auto) 5.1 % Eosinophils (%) (Auto) 0.1 % Basophils (%) (Auto) 0.1 % Neutrophils # (Auto) 15.0 TH/MM3 Lymphocytes # (Auto) 0.5 TH/MM3 Monocytes # (Auto) 0.8 TH/MM3 Eosinophils # (Auto) 0.0 TH/MM3 Basophils # (Auto) 0.0 TH/MM3 CBC Comment DIFF FINAL Differential Comment Prothrombin Time 10.4 SEC Prothromb Time International Ratio 0.9 RATIO Activated Partial Thromboplast Time 29.1 SEC Blood Urea Nitrogen 21 MG/DL Creatinine 1.30 MG/DL Random Glucose 141 MG/DL Total Protein 8.2 GM/DL Albumin 4.5 GM/DL Calcium Level 9.4 MG/DL Alkaline Phosphatase 71 U/L Aspartate Amino Transf (AST/SGOT) 22 U/L Alanine Aminotransferase (ALT/SGPT) 19 U/L Total Bilirubin 1.0 MG/DL Sodium Level 128 MEQ/L Potassium Level 3.6 MEQ/L Chloride Level 94 MEQ/L Carbon Dioxide Level 24.8 MEQ/L Anion Gap 9 MEQ/L Estimat Glomerular Filtration Rate 55 ML/MIN Lipase 277 U/L Urine Collection Type VOIDED Urine Color YELLOW Urine Turbidity CLEAR Urine pH 6.0 Urine Specific [place] GREATER THAN 1.035 Urine Protein TRACE mg/dL Urine Glucose (UA) NEG mg/dL Urine Ketones TRACE mg/dL Urine Occult Blood LARGE Urine Nitrite NEG Urine Bilirubin NEG Urine Leukocyte Esterase NEG Urine RBC 4-9 /hpf Urine WBC 0-2 /hpf Urine Squamous Epithelial Cells 0-2 /hpf Microscopic Urinalysis Comment CULT NOT INDICATED Lactic Acid Level 1.9 mmol/L Stool C. difficile Toxin (PCR) POSITIVE Stl C. difficile Toxin Epiderm 027 PRESUMPTIVE NEGATIVE Test 01/12/17 04:28 White Blood Count 8.0 TH/MM3 Red Blood Count 3.56 MIL/MM3 Hemoglobin 11.5 GM/DL Hematocrit 33.3 % Mean Corpuscular Volume 93.5 FL Mean Corpuscular Hemoglobin 32.4 PG Mean Corpuscular Hemoglobin Concent 34.7 % Red Cell Distribution Width 13.6 % Platelet Count 168 TH/MM3 Mean Platelet Volume 7.5 FL Neutrophils (%) (Auto) 76.7 % Lymphocytes (%) (Auto) 11.4 % Monocytes (%) (Auto) 10.0 % Eosinophils (%) (Auto) 1.7 % Basophils (%) (Auto) 0.2 % Neutrophils # (Auto) 6.1 TH/MM3 Lymphocytes # (Auto) 0.9 TH/MM3 Monocytes # (Auto) 0.8 TH/MM3 Eosinophils # (Auto) 0.1 TH/MM3 Basophils # (Auto) 0.0 TH/MM3 CBC Comment DIFF FINAL Differential Comment Blood Urea Nitrogen 18 MG/DL Creatinine 1.14 MG/DL Random Glucose 90 MG/DL Calcium Level 8.5 MG/DL Magnesium Level 1.9 MG/DL Sodium Level 135 MEQ/L Potassium Level 3.5 MEQ/L Chloride Level 103 MEQ/L Carbon Dioxide Level 22.6 MEQ/L Anion Gap 9 MEQ/L Estimat Glomerular Filtration Rate 64 ML/MIN Imaging Last Impressions Upper GI Series 01/12/17 0000 Signed Impressions: Service Date/Time: Thursday, January 12, 2017 09:14 - CONCLUSION: 1. Large hiatal hernia containing nearly the entire stomach with associated organoaxial rotation of the stomach. There is delayed passage of contrast through the stomach although no focal gastric obstruction is demonstrated with contrast extending to the duodenum. 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 No evidence of gastric obstruction. Diffuse moderate distention of the colon Elier Marie MD Objective Remarks General: NAD, AAOx3 Chest: CTA Cardiac: Regular Abd: +BS, soft ND/NT Ext: no edema A/P Problem List: (1) Volvulus ICD Codes: K56.2 - Volvulus Status: Acute Plan: - Pt is a 71 y/o WM with HTN, hyperlipidemia, CKD stage 3, peripheral neuropathy and PTSD. - He presented to the ED at [facility] with complaints lower abdominal pain and diarrhea. - Pt had recently been feeling more constipated and having difficulty with passing stool as well as increased abdominal distension over the last few days. Then yesterday he started having diarrhea and lower abdominal cramping and states that he was having so much diarrhea that he was unable to get up off the commode for most of the day. 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 - Labs at admission noted an elevated WBC count of 16.3 but pt has been afebrile. - His labs indicate some degree of dehydration - General Surgery, Dr. Moctezuma, was contacted in the ED and pt was recommended to be transferred to [facility] for surgical evaluation and GI evaluation. - Pts pain is currently controlled - General Surgery consulted. - UGI series (01/12) --> Large hiatal hernia containing nearly the entire stomach with associated organoaxial rotation of the stomach. There is delayed passage of contrast through the stomach although no focal gastric obstruction is demonstrated with contrast extending to the duodenum. - Stool were positive for C. diff, pt was started on Flagyl IV and this was converted to po on 01/12 and will need to be treated with Flagyl 500mg PO Q8H x 14 days. - Pain control PRN - Antiemetics PRN - Oral BP medications resumed on 01/12 - Appreciate GI consultation - Supportive care - Anticipate discharge when tolerating advanced diet. Pt will need followup with General Surgery regarding his large hiatal hernia. - He will need followup with his PCP, Dr. Fisher, within 1 week. - DVT prophylaxis with SCDs (2) C. difficile diarrhea ICD Codes: A04.72 - Enterocolitis due to Clostridium difficile, not specified as recurrent Status: Acute Plan: - See above. (3) Hiatal hernia ICD Codes: K44.9 - Diaphragmatic hernia without obstruction or gangrene Plan: - See above. (4) Hyperlipidemia ICD Codes: E78.5 - Hyperlipidemia, unspecified Status: Chronic Plan: - Home meds resumed (5) Hypertension ICD Codes: I10 - Essential (primary) hypertension Status: Chronic Plan: - Home meds resumed Assessment and Plan Patient examined. Assessment and plan formulated with Quita ROSE-C. I agree with the above. gastric hh/volvulus. stable c. diff colitis. improved d/c on flagyl cont home bp meds f/u gi and gs for possible surgery outpt. Quita Fitch Jan 13, 2017 09:20 Wai Jones MD Jan 13, 2017 14:35
[2017-01-13 12:00] VITALS: BP 184/81; PULSE 58; RESP 18; TEMP 96; O2SAT 98
--- NOTE | 2017-01-13 13:18 | HHI.PR ---
Subjective Subjective Notes pt without complaint pos BM Objective Vitals/I&O Vital Signs Date Time Temp Pulse Resp B/P (MAP) Pulse Ox O2 Delivery O2 Flow Rate FiO2 01/13/17 12:00 96.0 58 18 184/81 (115) 98 01/11/17 15:03 Room Air Labs Date/Time Source Procedure Growth Status 01/11/17 14:25 Blood Peripheral Aerobic Blood Culture - Preliminary Staphylococcus Epidermidis Resulted 01/11/17 14:25 Blood Peripheral Anaerobic Blood Culture - Preliminary NO GROWTH IN 2 DAYS Resulted 01/11/17 19:35 Stool Stool Pending Received Radiology Last Impressions Upper GI Series 01/12/17 0000 Signed Impressions: Service Date/Time: Thursday, January 12, 2017 09:14 - CONCLUSION: 1. Large hiatal hernia containing nearly the entire stomach with associated organoaxial rotation of the stomach. There is delayed passage of contrast through the stomach although no focal gastric obstruction is demonstrated with contrast extending to the duodenum. 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 No evidence of gastric obstruction. Diffuse moderate distention of the colon Elier Marie MD Cardiovascular: Regular Lungs: Clear Abdomen: Non-tender A/P Assessment and Plan Chronic Gastric volvulus laurie diet can be managed as an outpatient pt can f/u in office in 2 wks to discuss surgical options Roldan Campbell MD Jan 13, 2017 13:18
[2017-01-13] MEDS ORDERED: METR-1 PO ×2 (14:03→14:05)
[2017-01-13] MEDS ORDERED: cloNIDine HCL 0.1 MG TAB PO PRN (14:45)
[2017-01-13] MEDS ORDERED: POTASSIUM CHLORIDE 20 MEQ CONTROLLED RELEASE TAB PO ONE (15:00)
== END 2017-01-13 16:30 | disposition home or self-care (01) | DRG 389 ==
LOC: PHED 11:22 → PHEDA 14:15 → N07B 15:56
PROVIDERS: ADMIT Hospitalist; ATTEND Hospitalist
DX: K56.2 Volvulus (principal); E87.1 Hypo-osmolality and hyponatremia; A04.72 Enterocolitis due to Clostridium difficile, not specified as recurrent; N18.3 Chronic kidney disease, stage 3 (moderate); G62.9 Polyneuropathy, unspecified; F32.9 Major depressive disorder, single episode, unspecified; K21.9 Gastro-esophageal reflux disease without esophagitis; F41.9 Anxiety disorder, unspecified; F43.10 Post-traumatic stress disorder, unspecified; Z96.652 Presence of left artificial knee joint; I12.9 Hypertensive chronic kidney disease with stage 1 through stage 4 chronic kidney disease, or unspecified chronic kidney disease; E78.5 Hyperlipidemia, unspecified; E86.0 Dehydration; D64.9 Anemia, unspecified; K44.9 Diaphragmatic hernia without obstruction or gangrene; Z96.641 Presence of right artificial hip joint; M19.90 Unspecified osteoarthritis, unspecified site; Z87.891 Personal history of nicotine dependence
CPT/HCPCS: 74177; 74240; 80048; 80053; 81001; 83605; 83690; 83735; 85025; 85610; 85730; 86850; 86900; 86901; 87040; 87186; 87205; 87493; 87506; 96361; 96374; 96375; C9113; J2270; J2405; J2543; J7030; Q9963; Q9967

== ENCOUNTER → 2017-04-17 | Outpatient (CLI) | payer MEDICARE ==
[~2017-04-17] VITALS: Ht 180.3 cm; Wt 80.0 kg
[~2017-04-17] MED LIST changes: -ASPI81TA82 PO; -ATEN-102 PO; +ATEN25TA PO; +CHLORHEXIDINE GLUCONATE 2 % 1 PACK (2 CLOTHS) TOPICAL PRN; +DEXTROSE 5%-LACTATED RING INJ 1,000 ML IV SCH; +INSULIN HUMAN REGULAR 1,000 UNITS/10 ML VIAL SQ PRN; +LACTATED RINGER'S 1000 ML IV PRN; -LISI10TA PO; +LISI20TA PO; +METOPROLOL TARTRATE 25 MG TAB PO PRN; +METR-1 PO; -OMEP20TA39 PO; +OMEP20TA93 PO; +PARO10TA2 PO; -PARO20TA PO; +POVIDONE IODINE 5% (ANTISEPSIS KIT) 4 APPLICATIONS EACH NARE PRN; +SIMV20TA PO; +SODIUM CHLORID 0.9% 500 ML IV PRN; -VIAG100T PO; +VIAG50TA PO; -Z.0.COMMODE-3:1; -Z.0.WALKERFRONT; -ZOCO40TA PO
[2017-04-17 07:45] VITALS: BP 173/84; PULSE 60; RESP 16; TEMP 98.4; O2SAT 99
== END ==
LOC: HSDC 07:19
PROVIDERS: ATTEND Internal Medicine Gastroenterology
DX: K44.9 Diaphragmatic hernia without obstruction or gangrene (principal); K21.9 Gastro-esophageal reflux disease without esophagitis
CPT/HCPCS: 91010

== ENCOUNTER 2017-06-13 08:53 | Inpatient (IN) | payer MEDICARE ==
[~2017-06-13] VITALS: Ht 180.3 cm; Wt 86.9 kg
[~2017-06-13 08:53] MED LIST changes: +ASPI1TAB57 PO; -CHLORHEXIDINE GLUCONATE 2 % 1 PACK (2 CLOTHS) TOPICAL PRN; -DEXTROSE 5%-LACTATED RING INJ 1,000 ML IV SCH; -INSULIN HUMAN REGULAR 1,000 UNITS/10 ML VIAL SQ PRN; -LACTATED RINGER'S 1000 ML IV PRN; -METOPROLOL TARTRATE 25 MG TAB PO PRN; -METR-1 PO; -OMEP20TA93 PO; +PANT40TA3 PO; -POVIDONE IODINE 5% (ANTISEPSIS KIT) 4 APPLICATIONS EACH NARE PRN; -SODIUM CHLORID 0.9% 500 ML IV PRN
[2017-06-13] MEDS ORDERED: ACETAMINOPHEN 1000 MG/100 ML 100 ML IV SCH (09:30)
[2017-06-13] MEDS ORDERED: ONDANSETRON HCL 4 MG/2 ML VIAL IV PUSH SCH (09:30)
[2017-06-13] MEDS ORDERED: APREPITANT 40 MG CAP PO SCH (09:30)
[2017-06-13] MEDS ORDERED: CHLORHEXIDINE GLUCONATE 2 % 1 PACK (2 CLOTHS) TOPICAL PRN (09:30)
[2017-06-13] MEDS ORDERED: POVIDONE IODINE 5% (ANTISEPSIS KIT) 4 APPLICATIONS EACH NARE PRN (09:30)
[2017-06-13] MEDS ORDERED: METOPROLOL TARTRATE 25 MG TAB PO PRN (09:30)
[2017-06-13] MEDS ORDERED: LACTATED RINGER'S 1000 ML IV PRN (09:30)
[2017-06-13] MEDS ORDERED: AMPICILLIN/SULBAC 3 GM/NS 100 ML IV SCH ×2 (09:30)
[2017-06-13] MEDS ORDERED: SODIUM CHLORID 0.9% 500 ML IV PRN (09:30)
[2017-06-13] MEDS ORDERED: PHILCAP2 PO (09:50)
[2017-06-13] MEDS ORDERED: FLUT1SPR9 EACH NARE (09:54)
[2017-06-13] MEDS ORDERED: PHENYLEPH/NS 1000 MCG/10 ML SYR IV ONE (12:00)
[2017-06-13] MEDS ORDERED: DEXAMETHASONE SOD PHOS 4 MG/ML VIAL IV ONE (12:00)
[2017-06-13] MEDS ORDERED: PROPOFOL 200 MG/20 ML AMP IV ONE (12:00)
[2017-06-13] MEDS ORDERED: PHENYLEPHRINE HCL 10 MG/ML VIAL IV ONE (12:00)
[2017-06-13] MEDS ORDERED: ROCURONIUM INJ 50 MG/5 ML SYRINGE IV PUSH ONE (12:00)
[2017-06-13] MEDS ORDERED: ePHEDrine/NS 25 MG/5 ML SYRINGE IV ONE (12:00)
[2017-06-13] MEDS ORDERED: LIDOCAINE HCL 1% PF 5 ML SYRINGE OTHER ONE (12:00)
[2017-06-13] MEDS ORDERED: ONDANSETRON HCL 4 MG/2 ML VIAL IV ONE (12:00)
[2017-06-13] MEDS ORDERED: LACTATED RINGER'S 1000 ML INJ 1,000 ML IV ONE (12:00)
[2017-06-13] MEDS ORDERED: BUPIVACAINE/EPINEPHRINE 0.25% 50 ML VIAL ONE (14:32)
[2017-06-13] MEDS ORDERED: DO NOT ADM ANY ANTICOAGULANT DRUGS PRN ×2 (18:43→19:43)
[2017-06-13] MEDS ORDERED: SUGAMMADEX SODIUM 200 MG/2 ML VIAL IV PUSH ONE (19:04)
[2017-06-13] MEDS ORDERED: MIDAZOLAM HCL 2 MG/2 ML VIAL ONE (19:09)
[2017-06-13] MEDS ORDERED: *morphine SULFATE 10 MG/ML PERIprocedure ONLY ONE ×3 (19:51→20:06)
[2017-06-13] MEDS ORDERED: *MEPERIDINE 25 MG INJ VIAL PERIprocedural Use ONLY ONE (19:59)
[2017-06-13] MEDS ORDERED: SODIUM CHLORIDE 0.9% FLUSH 10 ML FLUSH IV FLUSH PRN (20:15)
[2017-06-13] MEDS ORDERED: ONDANSETRON HCL 4 MG/2 ML VIAL IV PUSH PRN (20:15)
[2017-06-13] MEDS ORDERED: NALOXONE HCL 0.4 MG/ML AMP IV PUSH PRN (20:15)
[2017-06-13] MEDS: SODIUM CHLOR 0.9% 1000 ML INJ 1,000 ML IV SCH (20:15)
[2017-06-13] MEDS: MORPHINE SULFATE 30 MG/30 ML PCA IV SCH (20:30)
[2017-06-13] MEDS: SODIUM CHLORIDE 0.9% FLUSH 10 ML FLUSH IV FLUSH SCH (21:00)
[2017-06-13] MEDS ORDERED: Post-op Orders (for Pharmacy) XX ONE (21:00)
[2017-06-13] MEDS: metroNIDAZOLE 500 MG INJ 100 ML IV SCH (21:30)
[2017-06-13] MEDS: PCA - TOTAL MG MORPHINE DELIVERED PER SHIFT SCH (22:00)
[2017-06-14] MEDS: metroNIDAZOLE 500 MG INJ 100 ML IV SCH ×2 (05:00→12:25)
[2017-06-14] MEDS: SODIUM CHLOR 0.9% 1000 ML INJ 1,000 ML IV SCH ×2 (05:44→16:15)
[2017-06-14] MEDS: PCA - TOTAL MG MORPHINE DELIVERED PER SHIFT SCH ×3 (05:45→21:55)
[2017-06-14 08:50] LABS: AUTOMATED NEUTROPHIL # 7.6 TH/MM3 (1.8-7.7); BASOPHIL % 0.1 % (0.0-2.0); HEMATOCRIT 34.4 % (39.0-51.0); LYMPH % 6.9 % (9.0-44.0); LYMPHOCYTE # 0.6 TH/MM3 (1.0-4.8); MEAN CELL VOLUME 95.4 FL (80.0-100.0); MEAN CORPUSCULAR HEMOGLOBIN 33.3 PG (27.0-34.0); MEAN CORPUSCULAR HGB CONC 34.9 % (32.0-36.0); MEAN PLATELET VOLUME 8.2 FL (7.0-11.0); MONO % 9.7 % (0.0-8.0); MONOCYTE # 0.9 TH/MM3 (0-0.9); NEUT % 83.3 % (16.0-70.0); PLATELET COUNT 165 TH/MM3 (150-450); RED BLOOD COUNT 3.61 MIL/MM3 (4.50-5.90); RED CELL DISTRIBUTION WIDTH 13.3 % (11.6-17.2); WHITE BLOOD COUNT 9.1 TH/MM3 (4.0-11.0)
[2017-06-14] MEDS ORDERED: PILL SPLITTER OTHER PRN (09:45)
[2017-06-14 11:14] LABS: BICARBONATE 23.6 MEQ/L (21.0-32.0); CALCIUM 7.6 MG/DL (8.5-10.1); CREATININE 1.65 MG/DL (0.60-1.30)
[2017-06-14] MEDS: ATENOLOL 25 MG TAB PO SCH (12:24)
[2017-06-14] MEDS: SODIUM CHLORIDE 0.9% FLUSH 10 ML FLUSH IV FLUSH SCH ×2 (12:24→21:00)
[2017-06-14] MEDS: PARoxetine HCL 20 MG TAB PO SCH (12:24)
--- NOTE | 2017-06-14 12:33 | RADRPT ---
EXAM DATE/TIME: 06/14/2017 11:49 [facility] COMPARISON: No previous studies available for comparison. INDICATIONS : Short of breath. Post hiatal hernia repair. MEDICAL HISTORY : Gastroesophageal reflux disease. Hypertension SURGICAL HISTORY : Hiatal hernia repair. ENCOUNTER: Initial ACUITY: 1 day PAIN SCORE: 0/10 LOCATION: Bilateral chest FINDINGS: A single view of the chest demonstrates the lungs to be symmetrically hypoinflated. Bibasilar airspac e disease, left greater than right. While this may be atelectatic, some degree of infiltrate, particu larly in the left cannot be excluded. Possible small left-sided effusion. Nasogastric tube enters the stomach with the tip in the expected location of the gastric antrum. Probable mediastinal drain proj ecting over the heart. Heart size is prominent but well compensated. CONCLUSION: 1. Probable right perihilar atelectatic changes. 2. More confluent airspace disease on the left with possible associated effusion. Again, this may rep resent atelectasis or early infiltrate. 3. Heart size is prominent but well compensated. Alpesh Gutierres MD on June 14, 2017 at 12:23 Board Certified Radiologist. This report was verified electronically.
--- NOTE | 2017-06-14 12:37 | HHI.PR ---
Subjective Subjective Notes Pain is controlled, minimal output from GERARD and NGT Denies N/V, reflux No chest pain or SOB Objective Vitals/I&O Vital Signs Date Time Temp Pulse Resp B/P (MAP) Pulse Ox O2 Delivery O2 Flow Rate FiO2 06/14/17 07:30 98.4 87 17 128/60 (82) 100 06/14/17 06:09 Nasal Cannula 4 Labs Laboratory Tests Test 06/14/17 08:09 White Blood Count 9.1 Red Blood Count 3.61 Hemoglobin 12.0 Hematocrit 34.4 Mean Corpuscular Volume 95.4 Mean Corpuscular Hemoglobin 33.3 Mean Corpuscular Hemoglobin Concent 34.9 Red Cell Distribution Width 13.3 Platelet Count 165 Mean Platelet Volume 8.2 Neutrophils (%) (Auto) 83.3 Lymphocytes (%) (Auto) 6.9 Monocytes (%) (Auto) 9.7 Eosinophils (%) (Auto) 0.0 Basophils (%) (Auto) 0.1 Neutrophils # (Auto) 7.6 Lymphocytes # (Auto) 0.6 Monocytes # (Auto) 0.9 Eosinophils # (Auto) 0.0 Basophils # (Auto) 0.0 CBC Comment DIFF FINAL Differential Comment Blood Urea Nitrogen 24 Creatinine 1.65 Random Glucose 145 Calcium Level 7.6 Sodium Level 142 Potassium Level 4.2 Chloride Level 107 Carbon Dioxide Level 23.6 Anion Gap 11 Estimat Glomerular Filtration Rate 42 Cardiovascular: Regular Lungs: Clear (diminished bilateral bases) Abdomen: Post-op tenderness Extremities: Perfused Wound Wound : Wound Location: Abdomen Appearance: Clean & Dry (left GERARD with minimal serosangineous drainage) A/P Assessment and Plan 71yo M POD#1 Robot-assisted paraesophageal hernia repair -Creatinine trending up, GFR down, continue IVF @ 125ml/hr -STAT CXR to assess for hemothorax -Gastrografin swallow study in the AM -CBC and BMP in AM Harry Levy Jun 14, 2017 12:37
[2017-06-14 16:00] VITALS: BP 135/61; PULSE 70; RESP 18; TEMP 97.6; O2SAT 95
[2017-06-14] MEDS ORDERED: PHENOL 1.4% SOLN 180 ML BTL OROPHARYNG PRN (16:00)
[2017-06-14] MEDS: ENOXAPARIN SODIUM 40 MG/0.4 ML SYRINGE SQ SCH (17:58)
[2017-06-14 20:00] VITALS: BP 157/73; PULSE 75; RESP 18; TEMP 97.3; O2SAT 95
[2017-06-15] VITALS (7 sets, daily range): BP systolic 135–190; BP diastolic 66–97; PULSE 74–96; RESP 16–19; TEMP 97.8–99.4; O2SAT 92–95
[2017-06-15] MEDS: SODIUM CHLOR 0.9% 1000 ML INJ 1,000 ML IV SCH ×2 (03:31→12:15)
[2017-06-15] MEDS: PCA - TOTAL MG MORPHINE DELIVERED PER SHIFT SCH ×3 (05:39→22:00)
[2017-06-15 07:05] LABS: AUTOMATED NEUTROPHIL # 5.3 TH/MM3 (1.8-7.7); BASOPHIL % 0.2 % (0.0-2.0); EOSINOPHIL # 0.1 TH/MM3 (0-0.4); EOSINOPHIL % 1.2 % (0.0-4.0); HEMATOCRIT 31.7 % (39.0-51.0); HEMOGLOBIN 11.3 GM/DL (13.0-17.0); LYMPH % 14.2 % (9.0-44.0); MEAN CELL VOLUME 95.2 FL (80.0-100.0); MEAN CORPUSCULAR HEMOGLOBIN 33.8 PG (27.0-34.0); MEAN CORPUSCULAR HGB CONC 35.5 % (32.0-36.0); MEAN PLATELET VOLUME 7.9 FL (7.0-11.0); MONO % 11.6 % (0.0-8.0); MONOCYTE # 0.8 TH/MM3 (0-0.9); NEUT % 72.8 % (16.0-70.0); PLATELET COUNT 136 TH/MM3 (150-450); RED BLOOD COUNT 3.33 MIL/MM3 (4.50-5.90); RED CELL DISTRIBUTION WIDTH 13.7 % (11.6-17.2); WHITE BLOOD COUNT 7.3 TH/MM3 (4.0-11.0)
[2017-06-15 07:23] LABS: BICARBONATE 25.7 MEQ/L (21.0-32.0); CALCIUM 7.9 MG/DL (8.5-10.1); CREATININE 1.23 MG/DL (0.60-1.30)
[2017-06-15] MEDS: SODIUM CHLORIDE 0.9% FLUSH 10 ML FLUSH IV FLUSH SCH ×2 (09:00→21:00)
[2017-06-15] MEDS ORDERED: DIATRIZOATE MEGLUM/DIATRIZOATE SOD 120 ML BTL (for RAD DIAG) PO ONE (10:36)
[2017-06-15] MEDS: PARoxetine HCL 20 MG TAB PO SCH (11:09)
[2017-06-15] MEDS: ATENOLOL 25 MG TAB PO SCH (11:10)
--- NOTE | 2017-06-15 11:57 | RADRPT ---
EXAM DATE/TIME: 06/15/2017 09:46 [facility] COMPARISON: No previous studies available for comparison. INDICATIONS : Post op hiatal hernia surgery FLUORO TIME: 1.1 minutes IMAGE COUNT: CONTRAST: 1. Gastrografin (Diatrizoate Meglumine and Diatrizoate Sodium) MEDICAL HISTORY : Gastroesophageal reflux disease. hiatal hernia SURGICAL HISTORY : left hip surgery, hiatal hernia surgery ENCOUNTER: Initial ACUITY: 2 days PAIN SCORE: 0/10 LOCATION: Bilateral neck FINDINGS: Gastrografin study findings and repair of the large hiatal hernia shows partial obstruction of the di stal esophagus with very landing in the upright position. The tip of the stomach remains above the d iaphragm.. CONCLUSION: Distal esophageal partial obstruction as above Jim Rice MD FACR on June 15, 2017 at 11:54 Board Certified Radiologist. This report was verified electronically.
[2017-06-15] MEDS: MORPHINE SULFATE 30 MG/30 ML PCA IV SCH (13:59)
[2017-06-15] MEDS: ENALAPRILAT 2.5 MG/2 ML VIAL IV PUSH PRN ×2 (15:21→22:37)
--- NOTE | 2017-06-15 15:30 | HHI.PR ---
Subjective Subjective Notes htn, pain controlled, no fevers, ugi without leak however shows some narrowing but has passage of contrast Objective Vitals/I&O Vital Signs Date Time Temp Pulse Resp B/P (MAP) Pulse Ox O2 Delivery O2 Flow Rate FiO2 06/15/17 12:00 98.2 96 19 190/90 (123) 95 06/14/17 06:09 Nasal Cannula 4 Labs Laboratory Tests Test 06/15/17 05:15 06/15/17 06:28 Blood Urea Nitrogen 13 Creatinine 1.23 Random Glucose 86 Calcium Level 7.9 Sodium Level 144 Potassium Level 3.8 Chloride Level 110 Carbon Dioxide Level 25.7 Anion Gap 8 Estimat Glomerular Filtration Rate 58 White Blood Count 7.3 Red Blood Count 3.33 Hemoglobin 11.3 Hematocrit 31.7 Mean Corpuscular Volume 95.2 Mean Corpuscular Hemoglobin 33.8 Mean Corpuscular Hemoglobin Concent 35.5 Red Cell Distribution Width 13.7 Platelet Count 136 Mean Platelet Volume 7.9 Neutrophils (%) (Auto) 72.8 Lymphocytes (%) (Auto) 14.2 Monocytes (%) (Auto) 11.6 Eosinophils (%) (Auto) 1.2 Basophils (%) (Auto) 0.2 Neutrophils # (Auto) 5.3 Lymphocytes # (Auto) 1.0 Monocytes # (Auto) 0.8 Eosinophils # (Auto) 0.1 Basophils # (Auto) 0.0 CBC Comment DIFF FINAL Differential Comment Lungs: Clear Abdomen: Other (incisional tenderness, moises serosang) A/P Assessment and Plan 71yo M POD#2 Robot-assisted paraesophageal hernia repair -add vasotec for htn control - dc shaffer -Gastrografin swallow study shows no leak but narrowing- will keep ng one more day, ok for small ice chips -CBC and BMP in AM - moises sxn - ambulate Nolberto Aguila MD Jun 15, 2017 15:30
[2017-06-15] MEDS: SENNOSIDES SYRUP 8.8 MG/5 ML CUP NG SCH (16:12)
[2017-06-15] MEDS ORDERED: HYDROCHLOROTHIAZIDE 25 MG TAB NG ONE (17:15)
[2017-06-15] MEDS ORDERED: LISINOPRIL 20 MG TAB NG ONE (17:15)
[2017-06-15] MEDS: ENOXAPARIN SODIUM 40 MG/0.4 ML SYRINGE SQ SCH (18:45)
[2017-06-16] VITALS (8 sets, daily range): BP systolic 160–204; BP diastolic 74–96; PULSE 61–83; RESP 16–20; TEMP 97.3–98.8; O2SAT 94–96
[2017-06-16] MEDS: SODIUM CHLOR 0.9% 1000 ML INJ 1,000 ML IV SCH ×3 (03:33→18:15)
[2017-06-16] MEDS: PCA - TOTAL MG MORPHINE DELIVERED PER SHIFT SCH ×3 (06:00→22:00)
[2017-06-16] MEDS: SODIUM CHLORIDE 0.9% FLUSH 10 ML FLUSH IV FLUSH SCH ×2 (09:00→21:00)
[2017-06-16] MEDS ORDERED: LISINOPRIL 20 MG TAB NG SCH (09:00)
[2017-06-16] MEDS: HYDROCHLOROTHIAZIDE 25 MG TAB NG SCH (09:15)
[2017-06-16] MEDS: PARoxetine HCL 20 MG TAB PO SCH (09:17)
[2017-06-16] MEDS: ATENOLOL 25 MG TAB PO SCH (09:18)
[2017-06-16] MEDS: SENNOSIDES SYRUP 8.8 MG/5 ML CUP NG SCH (09:35)
[2017-06-16] MEDS: MORPHINE SULFATE 30 MG/30 ML PCA IV SCH (10:16)
--- NOTE | 2017-06-16 13:18 | HHI.PR ---
Subjective Subjective Notes pain controlled, no N/V Objective Vitals/I&O Vital Signs Date Time Temp Pulse Resp B/P (MAP) Pulse Ox O2 Delivery O2 Flow Rate FiO2 06/16/17 12:00 98.7 77 20 187/89 (121) 95 06/14/17 06:09 Nasal Cannula 4 Cardiovascular: Regular Lungs: Clear Abdomen: Non-distended, Post-op tenderness Extremities: No edema, Perfused A/P Assessment and Plan 71yo male s/p HH repair, stable. DEE NG, advance to [facility] olmos. Arnulfo Jimenez MD Jun 16, 2017 13:18
[2017-06-16] MEDS: ENALAPRILAT 2.5 MG/2 ML VIAL IV PUSH PRN (15:51)
[2017-06-16] MEDS: ENOXAPARIN SODIUM 40 MG/0.4 ML SYRINGE SQ SCH (17:48)
[2017-06-16] MEDS ORDERED: cloNIDine HCL 0.1 MG TAB PO ONE (18:45)
--- NOTE | 2017-06-16 20:25 | PD.CONS ---
HPI Service [facility] Consult Requested By Primary Care Physician Amish Fisher MD, PhD Diagnoses: History of Present Illness Mr. Conrad is a 71 y/o WM with HTN, hyperlipidemia, CKD stage 3, peripheral neuropathy ,PTSD and paraesophageal hernia. He was recently admitted for a volvulus and c.diff colitis. He was admitted to [facility] now for a paraesophageal hernia surgery. He had ngt removed today and started on clears. His home bp meds were resumed atenolol/hctz/ lisinipril but bp was still quite elevated to sbp 180-200s. Pt says this is typical and gets this when around medical staff and gets anxious also. No headache now and no n/v. Just had popsicle and took a prn clonidine. Review of Systems Other elevated bp Past Family Social History Past Medical History HTN PTSD ckd 3 hyperlipidemia GERD c.diff volvulus paresophageal hernia Right hip replacement Reported Medications Flonase Allergy Relief Children Nasal [place] (Fluticasone Nasal [place]) 50 Mcg/ Act [place] 1 [place] EACH NARE DAILY 50 mcg/spray Sgnam (Probiotic Product) 1.5 Billion Cell Cap 1 Cap PO DAILY Aspirin 81 (Aspirin) 81 Mg Tabdr 81 Mg PO DAILY Pantoprazole (Pantoprazole Sodium) 40 Mg Tab 40 Mg PO DAILY Viagra (Sildenafil Citrate) 50 Mg Tab 50 Mg PO DAILY PRN Simvastatin 20 Mg Tab 20 Mg PO DAILY Paroxetine (Paroxetine HCl) 10 Mg Tab 10 Mg PO DAILY Lisinopril-Hctz 20-12.5 Mg Tab 1 Tab PO DAILY Atenolol 25 Mg Tab 25 Mg PO DAILY Allergies: Coded Allergies: No Known Allergies (Verified Allergy, Unknown, 06/13/17) Family History NC Social History Hx of tobacco use, smoked for about 10-15years, quit over 40 years ago Pt drinks a couple glasses of wine at night 2-3 times per week Denies any illicit drug use Physical Exam Vital Signs nad heart reg lung cta abd s/nt/bs ext no edema Vital Signs Date Time Temp Pulse Resp B/P (MAP) Pulse Ox O2 Delivery O2 Flow Rate FiO2 06/16/17 16:00 98.4 74 19 197/96 (129) 95 06/16/17 14:00 17 06/16/17 12:00 98.7 77 20 187/89 (121) 95 06/16/17 10:16 17 06/16/17 08:00 98.3 61 17 184/82 (116) 95 06/16/17 06:00 16 06/16/17 04:00 97.3 73 18 180/84 (116) 94 06/16/17 00:24 64 18 160/80 (106) 06/16/17 00:00 98.2 62 17 172/74 (106) 94 06/15/17 22:04 180/82 (114) 06/15/17 22:00 18 Result Diagram: 06/15/17 0628 06/15/17 0515 Assessment and Plan Problem List: (1) Hypertension ICD Codes: I10 - Essential (primary) hypertension Status: Acute Plan: 1. pod 3 robotic paraesophageal hernia surgery 2. post op uncontrolled htn 3. ckd 3 4. anxiety plan cont his atenolol, hctz, lisinipril at current dose provide prn clonidine for now. adjust prn vasotec if needs alot of prn control will plan to increase his scheduled medications currently pt denies any n/v or significant pain. probably a little anxious getting ivf and clears per gen surgery. (2) Paraesophageal hernia ICD Codes: K44.9 - Diaphragmatic hernia without obstruction or gangrene Status: Acute (3) Anxiety ICD Codes: F41.9 - Anxiety disorder, unspecified Status: Chronic (4) CKD (chronic kidney disease) stage 3, GFR 30-59 ml/min ICD Codes: N18.3 - Chronic kidney disease, stage 3 (moderate) Status: Chronic Wai Jones MD Jun 16, 2017 20:25
[2017-06-16] MEDS ORDERED: ENALAPRILAT 1.25 MG/ML VIAL IV PUSH PRN (20:30)
[2017-06-16] MEDS: cloNIDine HCL 0.2 MG TAB PO PRN (22:30)
[2017-06-17 00:41] VITALS: BP 182/92; PULSE 73; RESP 18; TEMP 96.6; O2SAT 92
[2017-06-17 04:00] VITALS: BP 146/77; PULSE 66; RESP 18; TEMP 97.9; O2SAT 94
[2017-06-17] MEDS: SODIUM CHLOR 0.9% 1000 ML INJ 1,000 ML IV SCH (05:27)
[2017-06-17] MEDS: PCA - TOTAL MG MORPHINE DELIVERED PER SHIFT SCH (05:27)
[2017-06-17 08:00] VITALS: BP 147/70; PULSE 60; RESP 20; TEMP 96.9; O2SAT 95
[2017-06-17] MEDS: ATENOLOL 25 MG TAB PO SCH (08:26)
[2017-06-17] MEDS: HYDROCHLOROTHIAZIDE 25 MG TAB NG SCH (08:26)
[2017-06-17] MEDS: PARoxetine HCL 20 MG TAB PO SCH (08:26)
[2017-06-17] MEDS: LISINOPRIL 20 MG TAB PO SCH ×2 (08:26→21:58)
[2017-06-17] MEDS: SENNOSIDES SYRUP 8.8 MG/5 ML CUP NG SCH (08:27)
[2017-06-17] MEDS: SODIUM CHLORIDE 0.9% FLUSH 10 ML FLUSH IV FLUSH SCH ×2 (08:27→21:58)
--- NOTE | 2017-06-17 09:34 | HHI.PR ---
Subjective Subjective Notes Tolerating clears without problems. Has ambulated with walker. Using DIRECTOR INFORMATION occasionally. Objective Vitals/I&O Vital Signs Date Time Temp Pulse Resp B/P (MAP) Pulse Ox O2 Delivery O2 Flow Rate FiO2 06/17/17 08:00 96.9 60 20 147/70 (95) 95 06/14/17 06:09 Nasal Cannula 4 Narrative Exam NAD, resting in chair Nonlabored breathing Abd: soft, mild distention, GERARD ss output, inc c/d/i Adequate UOP A/P Assessment and Plan POD 4 robot assisted HH repair. Tolerating clears, no issues. Fulls. D/c DIRECTOR INFORMATION and IVF. Start PO liquid narcotics. Cont GERARD drain. Encourage ambulation. Gustavo Ladd MD Jun 17, 2017 09:34
[2017-06-17 11:43] LABS: AUTOMATED NEUTROPHIL # 4.1 TH/MM3 (1.8-7.7); BASOPHIL % 0.6 % (0.0-2.0); EOSINOPHIL # 0.3 TH/MM3 (0-0.4); EOSINOPHIL % 5.1 % (0.0-4.0); HEMATOCRIT 33.6 % (39.0-51.0); HEMOGLOBIN 11.9 GM/DL (13.0-17.0); LYMPH % 15.7 % (9.0-44.0); MEAN CELL VOLUME 95.1 FL (80.0-100.0); MEAN CORPUSCULAR HEMOGLOBIN 33.6 PG (27.0-34.0); MEAN CORPUSCULAR HGB CONC 35.4 % (32.0-36.0); MEAN PLATELET VOLUME 7.9 FL (7.0-11.0); MONO % 11.4 % (0.0-8.0); MONOCYTE # 0.7 TH/MM3 (0-0.9); NEUT % 67.2 % (16.0-70.0); PLATELET COUNT 164 TH/MM3 (150-450); RED BLOOD COUNT 3.54 MIL/MM3 (4.50-5.90); RED CELL DISTRIBUTION WIDTH 13.2 % (11.6-17.2); WHITE BLOOD COUNT 6.2 TH/MM3 (4.0-11.0)
[2017-06-17 12:00] VITALS: BP 174/81; PULSE 54; RESP 20; TEMP 96.9; O2SAT 96
[2017-06-17 12:00] LABS: BICARBONATE 24.6 MEQ/L (21.0-32.0); CALCIUM 8.4 MG/DL (8.5-10.1); CREATININE 0.97 MG/DL (0.60-1.30)
--- NOTE | 2017-06-17 13:15 | HHI.PR ---
Subjective Remarks had some abdomen pain earlier ..seems better. Objective Vitals heart reg lung cta abd s/nt ext no edema Vital Signs Date Time Temp Pulse Resp B/P (MAP) Pulse Ox O2 Delivery O2 Flow Rate FiO2 06/17/17 12:00 96.9 54 20 174/81 (112) 96 06/17/17 08:00 96.9 60 20 147/70 (95) 95 06/17/17 05:27 16 06/17/17 04:00 97.9 66 18 146/77 (100) 94 06/17/17 00:41 96.6 73 18 182/92 (122) 92 06/16/17 22:32 79 18 204/96 (132) 96 06/16/17 22:00 18 06/16/17 20:21 98.8 83 16 202/93 (129) 96 06/16/17 16:00 98.4 74 19 197/96 (129) 95 06/16/17 14:00 17 06/17/17 06/17/17 06/18/17 15:00 23:00 07:00 Intake Total 120 ml Output Total 20 ml Balance 100 ml Intake Oral 120 ml Drainage Total 20 ml Result Diagram: 06/17/17 1108 06/17/17 1108 A/P Problem List: (1) Hypertension ICD Codes: I10 - Essential (primary) hypertension Status: Acute Plan: 1. pod 3 robotic paraesophageal hernia surgery 2. post op uncontrolled htn 3. ckd 3 4. anxiety plan cont his atenolol, hctz, ......lisinipril increased to bid provide prn clonidine for now. adjust prn vasotec currently pt denies any n/v or significant pain. probably a little anxious getting ivf and diet per gen surgery. (2) Paraesophageal hernia ICD Codes: K44.9 - Diaphragmatic hernia without obstruction or gangrene Status: Acute (3) Anxiety ICD Codes: F41.9 - Anxiety disorder, unspecified Status: Chronic (4) CKD (chronic kidney disease) stage 3, GFR 30-59 ml/min ICD Codes: N18.3 - Chronic kidney disease, stage 3 (moderate) Status: Chronic Wai Jones MD Jun 17, 2017 13:15
[2017-06-17] MEDS: ACETAMINOPHEN 325MG/HYDROcodone 7.5MG/15ML UDC PO PRN ×2 (14:07→18:12)
[2017-06-17 16:00] VITALS: BP 186/88; PULSE 58; RESP 19; TEMP 96.9; O2SAT 95
[2017-06-17] MEDS: ENOXAPARIN SODIUM 40 MG/0.4 ML SYRINGE SQ SCH (17:44)
[2017-06-17] MEDS: cloNIDine HCL 0.2 MG TAB PO PRN (18:11)
[2017-06-17 20:00] VITALS: BP 141/78; PULSE 54; RESP 18; TEMP 96.6; O2SAT 96
[2017-06-18] VITALS: BP 155/80; PULSE 53; RESP 18; TEMP 97.9; O2SAT 95
[2017-06-18 08:00] VITALS: BP 148/67; PULSE 51; RESP 18; TEMP 96.3; O2SAT 95
--- NOTE | 2017-06-18 08:45 | HHI.PR ---
Subjective Subjective Notes Patient doing well, tolerating liquids no reflux, no dysphagia or nausea, + flatus no bm Objective Vitals/I&O Vital Signs Date Time Temp Pulse Resp B/P (MAP) Pulse Ox O2 Delivery O2 Flow Rate FiO2 06/18/17 08:00 96.3 51 18 148/67 (94) 95 Labs Laboratory Tests Test 06/17/17 11:08 White Blood Count 6.2 Red Blood Count 3.54 Hemoglobin 11.9 Hematocrit 33.6 Mean Corpuscular Volume 95.1 Mean Corpuscular Hemoglobin 33.6 Mean Corpuscular Hemoglobin Concent 35.4 Red Cell Distribution Width 13.2 Platelet Count 164 Mean Platelet Volume 7.9 Neutrophils (%) (Auto) 67.2 Lymphocytes (%) (Auto) 15.7 Monocytes (%) (Auto) 11.4 Eosinophils (%) (Auto) 5.1 Basophils (%) (Auto) 0.6 Neutrophils # (Auto) 4.1 Lymphocytes # (Auto) 1.0 Monocytes # (Auto) 0.7 Eosinophils # (Auto) 0.3 Basophils # (Auto) 0.0 CBC Comment DIFF FINAL Differential Comment Blood Urea Nitrogen 14 Creatinine 0.97 Random Glucose 90 Calcium Level 8.4 Sodium Level 139 Potassium Level 3.8 Chloride Level 106 Carbon Dioxide Level 24.6 Anion Gap 8 Estimat Glomerular Filtration Rate 77 Lungs: Clear Abdomen: Non-distended, Other (incisional tenderness c/d/i, moises serosang) A/P Assessment and Plan 71yo M s/p Robot-assisted paraesophageal hernia repair -d/c planning today, await medicine recs for BP control at home - moises sxn - ambulate - dvt ppx - discussed with and patient, patient to follow up tomorrow with Nolberto Hitcchock MD Jun 18, 2017 08:45
[2017-06-18] MEDS: SODIUM CHLORIDE 0.9% FLUSH 10 ML FLUSH IV FLUSH SCH (09:38)
[2017-06-18] MEDS: HYDROCHLOROTHIAZIDE 25 MG TAB NG SCH (09:39)
[2017-06-18] MEDS: PARoxetine HCL 20 MG TAB PO SCH (09:39)
[2017-06-18] MEDS: SENNOSIDES SYRUP 8.8 MG/5 ML CUP NG SCH (09:40)
[2017-06-18] MEDS: ATENOLOL 25 MG TAB PO SCH (09:42)
[2017-06-18] MEDS: LISINOPRIL 20 MG TAB PO SCH (09:42)
[2017-06-18 12:00] VITALS: BP 162/70; PULSE 53; RESP 18; TEMP 96.2; O2SAT 97
[2017-06-18] MEDS ORDERED: NIFEdipine 30 MG SUSTAINED RELEASE TAB PO SCH (15:00)
--- NOTE | 2017-06-18 15:03 | HHI.PR ---
Subjective Remarks No new complaints. Pt tolerating clears. Objective Vitals Vital Signs Date Time Temp Pulse Resp B/P (MAP) Pulse Ox O2 Delivery O2 Flow Rate FiO2 06/18/17 12:00 96.2 53 18 162/70 (100) 97 06/18/17 08:00 96.3 51 18 148/67 (94) 95 06/18/17 00:00 97.9 53 18 155/80 (105) 95 06/17/17 20:00 96.6 54 18 141/78 (99) 96 06/17/17 16:00 96.9 58 19 186/88 (120) 95 06/18/17 06/18/17 06/19/17 14:59 22:59 06:59 Output Total 20 ml Balance -20 ml Drainage Total 20 ml # Bowel Movements 1 Result Diagram: 06/17/17 1108 06/17/17 1108 Imaging Last Impressions Upper GI/Barium Swallow X-Ray 06/15/17 0000 Signed Impressions: Service Date/Time: Thursday, June 15, 2017 09:46 - CONCLUSION: Distal esophageal partial obstruction as above Jim Rice MD FACR Chest X-Ray 06/14/17 0000 Signed Impressions: Service Date/Time: June 11:49 - CONCLUSION: 1. Probable right perihilar atelectatic changes. 2. More confluent airspace disease on the left with possible associated effusion. Again, this may represent atelectasis or early infiltrate. 3. Heart size is prominent but well compensated. Alpesh Gutierres MD A/P Problem List: (1) Hypertension ICD Codes: I10 - Essential (primary) hypertension Status: Acute Plan: 1. pod 3 robotic paraesophageal hernia surgery 2. post op uncontrolled htn 3. ckd 3 4. anxiety - continue lisinopril/HCTZ BID - continue atenolol - keep home BP log - f/u with PCP, Dr. Fisher in 2 weeks. (2) Paraesophageal hernia ICD Codes: K44.9 - Diaphragmatic hernia without obstruction or gangrene Status: Acute Plan: - post op mgmt per General Surgery (3) Anxiety ICD Codes: F41.9 - Anxiety disorder, unspecified Status: Chronic Plan: - paxil (4) CKD (chronic kidney disease) stage 3, GFR 30-59 ml/min ICD Codes: N18.3 - Chronic kidney disease, stage 3 (moderate) Status: Lloyd Jeffery DO Jun 18, 2017 15:03
[2017-06-18] MEDS ORDERED: COLA100C5 PO (15:43)
[2017-06-18] MEDS ORDERED: LISI20TA PO (15:43)
[2017-06-18] MEDS ORDERED: VIAG50TA PO (15:43)
--- NOTE | 2017-06-18 15:48 | HHI.DCPOC ---
Discharge Care Plan Diagnosis: (1) Paraesophageal hernia Goals to Promote Your Health * To prevent worsening of your condition and complications * To maintain your health at the optimal level Directions to Meet Your Goals Take your medications as prescribed Follow your dietary instruction Follow activity as directed Keep your appointments as scheduled Take your immunizations and boosters as scheduled If your symptoms worsen call your PCP, if no PCP go to Urgent Care Center or Emergency Room Smoking is Dangerous to Your Health. Avoid second hand smoke Call the 24-hour hour crisis hotline for domestic abuse at Lloyd Hale DO Jun 18, 2017 15:48
[2017-06-18 16:00] VITALS: BP 137/65; PULSE 62; RESP 18; TEMP 95.2; O2SAT 95
== END 2017-06-18 18:10 | disposition home or self-care (01) | DRG 328 ==
LOC: HSDI 08:53 → N07A 06-14 12:16
PROVIDERS: ADMIT Surgery; ATTEND Surgery
PROC: 0BUT4JZ Supplement Diaphragm with Synthetic Substitute, Percutaneous Endoscopic Approach (ICD-10-PCS; 2017-06-13)
PROC: 8E0W4CZ Robotic Assisted Procedure of Trunk Region, Percutaneous Endoscopic Approach (ICD-10-PCS; 2017-06-13)
PROC: 0DV44ZZ Restriction of Esophagogastric Junction, Percutaneous Endoscopic Approach (ICD-10-PCS; principal; 2017-06-13 14:19)
DX: K44.9 Diaphragmatic hernia without obstruction or gangrene (principal); N18.3 Chronic kidney disease, stage 3 (moderate); G62.9 Polyneuropathy, unspecified; I12.9 Hypertensive chronic kidney disease with stage 1 through stage 4 chronic kidney disease, or unspecified chronic kidney disease; F43.10 Post-traumatic stress disorder, unspecified; E78.5 Hyperlipidemia, unspecified; K21.9 Gastro-esophageal reflux disease without esophagitis; Z96.641 Presence of right artificial hip joint; Z87.891 Personal history of nicotine dependence; K22.70 Barrett's esophagus without dysplasia
CPT/HCPCS: 71045; 74220; 80048; 85025; 94150; J0131; J0295; J0690; J1100; J1650; J2175; J2250; J2270; J2370; J2405; J3010; J7030; J7120; J8501; Q9963